=== PATIENT | male | born 1940 | race Caucasian/White ===

== ENCOUNTER 2017-10-17 13:26 | Emergency (ER) | payer OTHER, BC ==
[~2017-10-17] VITALS: Ht 177.8 cm; Wt 101.6 kg
[2017-10-17 13:34] VITALS: TEMP 36.6; Ht 177.8 cm; Wt 101.6 kg
[2017-10-17] MEDS: HYDROmorphone INJ 1 MG/ML SYR IV PRN ×2 (14:12→15:06)
--- NOTE | 2017-10-17 14:34 | DIAGNOSTIC IMAGING REPORT ---
R HIP UNILATERAL 2 VIEWS CLINICAL HISTORY: Right hip pain following fall. COMPARISON: None FINDINGS: Note is made of posterior superior dislocation of the femoral component of the right hip arthroplasty with respect to the acetabular cup. No fracture is identified. There are 2 acetabular screws. IMPRESSION: Posterior superior dislocation of the femoral component of the right hip arthroplasty. Electronically signed by: Ignacio Wu M.D. 10/17/2017 2:33 PM Dictated Date/Time: 10/17/2017 2:32 PM
--- NOTE | 2017-10-17 14:35 | DIAGNOSTIC IMAGING REPORT ---
PELVIS 1 OR 2 VIEW ROUTINE CLINICAL HISTORY: Right hip pain following fall. COMPARISON STUDY: No previous studies for comparison. FINDINGS: Note is made of posterior superior dislocation of the femoral component of the right hip arthroplasty with respect to the acetabular cup. No associated fracture is identified. Postoperative findings within the lumbosacral spine are partially imaged. IMPRESSION: Posterior superior dislocation of the femoral component of the right hip arthroplasty. Electronically signed by: Ignacio Wu M.D. 10/17/2017 2:34 PM Dictated Date/Time: 10/17/2017 2:33 PM
[2017-10-17] MEDS ORDERED: PROPOFOL IV EMULSION 10 MG/ML 20 ML VIAL IV STA (14:42)
[2017-10-17 15:30] VITALS: BP 147/68; PULSE 62; PULSE 65; O2SAT 95; O2SAT 99
--- NOTE | 2017-10-17 15:40 | EMERGENCY ROOM VISIT NOTE ---
ED Visit Note Hip Dislocation Reduction Indication: Right hip dislocation Verbal consent obtained. Risks and benefits were explained with the usual customary discussion. A time out was taken. Neurovascular examination before the procedure revealed neurovascularly intact. The right hip was reduced by placing in the supine position. This resulted in an easy reduction without complication. Neurovascular examination after the procedure revealed neurovascularly intact. The patient had significant pain relief and tolerated the procedure well.
[2017-10-17 15:42] VITALS: BP 145/71; PULSE 45; O2SAT 98
[2017-10-17 15:58] VITALS: BP 133/50; PULSE 52; O2SAT 96
[2017-10-17] MEDS ORDERED: ZOLP5TAB PO (16:20)
[2017-10-17] MEDS ORDERED: OMEG10007 PO (16:20)
[2017-10-17] MEDS ORDERED: COEN75CA PO (16:20)
[2017-10-17] MEDS ORDERED: CRS/10 PO (16:20)
[2017-10-17] MEDS ORDERED: EZET10TA63 PO (16:20)
[2017-10-17] MEDS ORDERED: ASPI81TA28 PO (16:20)
[2017-10-17] MEDS ORDERED: DVN80125 PO (16:20)
[2017-10-17] MEDS ORDERED: PRLSR20 PO (16:20)
[2017-10-17] MEDS ORDERED: POTA99TA PO (16:20)
[2017-10-17] MEDS ORDERED: MAGNTAB17 PO (16:20)
[2017-10-17] MEDS ORDERED: DILT180C50 PO (16:20)
[2017-10-17] MEDS ORDERED: CLR10 PO (16:20)
--- NOTE | 2017-10-17 16:27 | DIAGNOSTIC IMAGING REPORT ---
PELVIS 1 OR 2 VIEW ROUTINE CLINICAL HISTORY: post reduction dislocation COMPARISON: Same date to 8:00 PM DISCUSSION: Anatomic alignment post closed reduction. Total right hip replacement in good position. Stable postoperative changes low lumbar spine. There is no evidence for soft tissue swelling. IMPRESSION: Anatomic alignment post closed reduction right hip. The above report was generated using voice recognition software. It may contain grammatical, syntax or spelling errors. Electronically signed by: Adair Reinoso M.D. 10/17/2017 4:26 PM Dictated Date/Time: 10/17/2017 4:25 PM
--- NOTE | 2017-10-17 17:12 | EMERGENCY ROOM VISIT NOTE ---
History Report prepared by Herbert: Jovana Rasmussen Under the Supervision of: Dr. Paris Pierce D.O. First contact with patient: 13:41 Chief Complaint: HIP PAIN Stated Complaint: HIP PAIN History of Present Illness The patient is a 77 year old male who presents to the Emergency Room with complaints of sudden right hip pain starting prior to arrival. The patient states that he had his right hip replaced in October of last year. He notes that intermittently it feels unstable, but he is able to catch himself. He states that they are currently moving into a new house. He reports that he sat down to take a break in a low seated picnic chair. He states that when he went to get up out of it he felt his right hip give way towards his left leg. He states that he immediately collapsed and had excruciating pain. He states that the pain is much worse if he tries to move his leg. The patient states that he believes he popped the hip out. He notes that he did scrape his elbow. He states that there was hardly anything in the room at the time. He reports that he had major back surgery at the end of June, but did not feel anything in his back when he fell today. The patient denies numbness in his legs, tingling in his legs, back pain, hitting his head, and loss of consciousness. The patient notes that he last ate 4.5 hours ago. Source of History: patient Onset: prior to arrival Position: other (right hip) Quality: other (unstable) Timing: other (sudden) Modifying Factors (Worsening): movement Associated Symptoms: No LOC, No back pain, No numbness Note: The patient denies tingling in his legs. Review of Systems See HPI for pertinent positives & negatives. A total of 10 systems reviewed and were otherwise negative. Past Medical & Surgical Surgical Problems: (1) History of back surgery (2) History of right hip replacement (3) Hx of total knee replacement Family History No pertinent family history Social History Smoking Status: Former Smoker Marital Status: Housing Status: lives with significant other Occupation Status: retired Current/Historical Medications Scheduled Aspirin (Aspirin Ec), 81 MG PO QPM Coenzyme Q10 (Ubidecarenone) (Co Q-10), 1 CAP PO QPM Diltiazem Hcl Coated Beads (Cartia Xt), 180 MG PO QAM Ezetimibe (Zetia), 10 MG PO QAM Fish Oil (Stephens-3), 1 CAP PO BID Loratadine (Claritin), 10 MG PO QAM Magnesium Chloride-Calcium Car (Slow-Mag), 1 TAB PO QPM Omeprazole (Prilosec), 20 MG PO QAM Potassium (Potassium), 99 MG PO QPM Rosuvastatin Calcium (Crestor), 10 MG PO QPM Valsartan/Hctz (Diovan Hct), 1 TAB PO QAM Zolpidem Tartrate (Ambien), 5 MG PO HS Allergies Coded Allergies: No Known Allergies (Unverified , 10/17/17) Physical Exam Vital Signs Date Time Temp Pulse Resp B/P (MAP) Pulse Ox O2 Delivery O2 Flow Rate FiO2 10/17/17 17:51 40 98 10/17/17 17:32 132/56 10/17/17 17:20 158/66 10/17/17 17:03 133/81 10/17/17 16:51 41 15 10/17/17 16:46 43 18 97 10/17/17 16:32 142/56 10/17/17 16:16 52 20 86 10/17/17 16:02 131/93 10/17/17 15:58 52 20 133/50 96 Room Air 10/17/17 15:52 133/50 10/17/17 15:46 50 11 100 10/17/17 15:42 45 12 145/71 98 Nasal Cannula 2.0 10/17/17 15:41 54 10 145/71 93 10/17/17 15:31 54 10 125/71 100 10/17/17 15:30 62 14 99 Ambu-Bag 15.0 10/17/17 15:30 65 8 147/68 95 Ambu-Bag 15.0 10/17/17 15:28 52 10/17/17 15:28 138/68 10/17/17 15:21 52 14 95 10/17/17 15:13 100 Nasal Cannula 2.0 10/17/17 15:13 100 Nasal Cannula 2.0 10/17/17 15:11 47 14 10/17/17 15:06 49 18 10/17/17 14:49 142/60 10/17/17 14:42 51 16 136/94 96 Room Air 10/17/17 13:34 36.6 55 18 161/74 99 Room Air Physical Exam GENERAL: alert, uncomfortable appearing, well nourished, no distress, non-toxic EYE EXAM: normal conjunctiva, PERRL and EOM's grossly intact OROPHARYNX: no exudate, no erythema, lips, buccal mucosa, and tongue normal and mucous membranes are moist NECK: supple, no nuchal rigidity, no adenopathy, non-tender LUNGS: Clear to auscultation. Normal chest wall mechanics HEART: no murmurs, S1 normal and S2 normal ABDOMEN: abdomen soft, non-tender, normo-active bowel sounds, no masses, no rebound or guarding. BACK: Back is symmetrical on inspection and there is no deformity, no midline tenderness, no CVA tenderness. SKIN: no rashes and no bruising UPPER EXTREMITIES: upper extremities are grossly normal. LOWER EXTREMITIES: No pitting edema. Right hip supported in flexion. Pain with palpation over the right lateral hip. Well healed vertical midline incision over the right knee. Decreased ROM in the right lower extremity secondary to pain. NEURO EXAM: Normal sensorium, cranial nerves II-XII grossly intact, normal speech, no gross weakness of arms, no gross weakness of legs. Medical Decision & Procedures ER Provider Diagnostic Interpretation: Radiology results have been interpreted by the radiologist and reviewed by me. PELVIS 1 OR 2 VIEW ROUTINE CLINICAL HISTORY: Right hip pain following fall. COMPARISON STUDY: No previous studies for comparison. FINDINGS: Note is made of posterior superior dislocation of the femoral component of the right hip arthroplasty with respect to the acetabular cup. No associated fracture is identified. Postoperative findings within the lumbosacral spine are partially imaged. IMPRESSION: Posterior superior dislocation of the femoral component of the right hip arthroplasty. Electronically signed by: Ignacio Wu M.D. 10/17/2017 2:34 PM Dictated Date/Time: 10/17/2017 2:33 PM R HIP UNILATERAL 2 VIEWS CLINICAL HISTORY: Right hip pain following fall. COMPARISON: None FINDINGS: Note is made of posterior superior dislocation of the femoral component of the right hip arthroplasty with respect to the acetabular cup. No fracture is identified. There are 2 acetabular screws. IMPRESSION: Posterior superior dislocation of the femoral component of the right hip arthroplasty. Electronically signed by: Ignacio Wu M.D. 10/17/2017 2:33 PM Dictated Date/Time: 10/17/2017 2:32 PM PELVIS 1 OR 2 VIEW ROUTINE CLINICAL HISTORY: post reduction dislocation COMPARISON: Same date to 8:00 PM DISCUSSION: Anatomic alignment post closed reduction. Total right hip replacement in good position. Stable postoperative changes low lumbar spine. There is no evidence for soft tissue swelling. IMPRESSION: Anatomic alignment post closed reduction right hip. The above report was generated using voice recognition software. It may contain grammatical, syntax or spelling errors. Electronically signed by: Adair Reinoso M.D. 10/17/2017 4:26 PM Dictated Date/Time: 10/17/2017 4:25 PM Medications Administered Medications (Trade) Dose Ordered Sig/Eric Route Start Time Stop Time Status Last Admin Dose Admin Hydromorphone HCl (Dilaudid Inj) 1 mg Q15M PRN IV 10/17/17 14:15 10/17/17 19:03 DC 10/17/17 15:06 1 MG Ondansetron HCl (ZOFRAN ODT 4MG Home Pack) 1 homepack UD ONCE PO 10/17/17 17:45 10/17/17 17:46 DC 10/17/17 17:49 1 HOMEPACK Ondansetron HCl (Zofran Inj) 4 mg NOW STAT IV 10/17/17 17:44 10/17/17 17:45 DC 10/17/17 17:49 4 MG Procedure Procedural Sedation Indication: Right Hip Dislocation. Total time: 10 minutes. Written consent was obtained after the risks and benefits were explained to the patient, including, but not limited to aspiration, allergic reaction, breathing difficulties, cardiac complications, vomiting, pain, event recall, bleeding, and /or infection. Pre-sedation examination and paperwork completed. The patient was on 100% oxygen via NRB prior to the procedure. Continous end tidal CO2 monitoring, pulse oximetry, and cardiac monitoring were utilized. Suction, airway equipment, medications, respiratory equipment, and appropriate personnel were prepared prior to the initiation of the procedure. A time out was taken. Sedation was achieved utilizing 100 mg of Propofol. After I observed the patient had reached the appropriate level of sedation the main procedure was performed without complication. Sedation was discontinued and the monitoring continued. The patient recovered quickly from the effects of the medication without complication or adverse event. ED Course 1359: The patient was evaluated in room B8. A complete history and physical exam was performed. 1415: Ordered Dilaudid Inj 1 mg PRN IV pain. 1441: I reevaluated the patient and updated him on his x-ray results. 1442: Ordered Propofol 20 mg IV. 1500: I reevaluated the patient and received consent for his sedation and reduction. 1516: I performed a sedation at this time. Dr. Shamar Triplett performed the reduction. See his note for details regarding the reduction. 1652: I reevaluated the patient and he feels better. 1716: Upon reevaluation, the patient is feeling better. I discussed the findings and the treatment plan with the patient. He verbalizes agreement and understanding. The patient was discharged home. 1744: Ordered Zofran Inj 4 mg IV. 174: Ordered Ondansetron HCl 1 homepack PO. Medical Decision Differential diagnosis: Etiologies such as fracture, dislocation, neurovascular compromise, compartment syndrome, soft tissue injury, as well as others were entertained. Patient improved here following reduction and realignment of the prosthetic hip on the right. Patient able to ambulate. Patient with mild nausea which she states is normal after medications, was able to eat and drink, had no vomiting. Vital signs stable throughout. Patient tolerated procedure and sedation well. Consent form signed and on the chart. Patient and family aware of procedure as well as recovery. Please see procedure notes and additional note by Dr. Shamar Triplett who assisted with the reduction. Discussed with patient close follow-up with orthopedics. Orthopedic surgeon performed his procedure one year ago is in [place], however he was recently also given names and contact information's of local orthopedist to follow-up with. I encouraged him to follow-up with either later on this week as a precaution. Discussed position changes, ambulation, use of an abduction pillow. Patient offered additional pain medication and he declined, states he would like to only take Tylenol at home. Discussed symptoms to watch and return for, he and verbalized understanding were in agreement with plan. Medication Reconcilliation Current Medication List: was personally reviewed by me Blood Pressure Screening Patient's blood pressure: Normal blood pressure Blood pressure disposition: Did not require urgent referral Impression Primary Impression: Hip dislocation, right Additional Impression: History of right hip replacement Scribe Attestation The scribe's documentation has been prepared under my direction and personally reviewed by me in its entirety. I confirm that the note above accurately reflects all work, treatment, procedures, and medical decision making performed by me. Departure Information Dispostion Home / Self-Care Referrals Mikel Coates M.D. (PCP) Forms HOME CARE DOCUMENTATION FORM, IMPORTANT VISIT INFORMATION, WORK / SCHOOL INSTRUCTIONS Patient Instructions [facility] Additional Instructions Please call and follow-up with the orthopedic surgeon who performed her surgery or with a local orthopedist as you have previously been referred. Please use the abduction pillow. Please make sure to stand with your feet shoulder width apart. Please use extra caution when changing positions or standing. If you have any worsening pain, are unable to walk, have any other new or concerning symptoms, please return the emergency room. Problem Qualifiers Primary Impression: Hip dislocation, right Encounter type: initial encounter Qualified Codes: S73.004A - Unspecified dislocation of right hip, initial encounter
[2017-10-17 17:32] VITALS: BP 132/56
[2017-10-17] MEDS ORDERED: ONDANSETRON INJ 2 MG/ML 2 ML VIAL IV STA (17:44)
[2017-10-17] MEDS ORDERED: ONDANSETRON HOME PACK 4MG OD TAB ONE (17:44)
[2017-10-17] MEDS ORDERED: ONDANSETRON INJ 2 MG/ML 2 ML VIAL ONE (17:44)
[2017-10-17] MEDS ORDERED: ONDANSETRON HOME PACK 4MG OD TAB PO ONE (17:45)
[2017-10-17 17:51] VITALS: PULSE 40; O2SAT 98
--- NOTE | 2017-10-19 22:03 | EMERGENCY ROOM VISIT NOTE ---
Pre-Mod Sedation Assessment General Date of Moderate Sedation: Oct 17, 2017. Vital Signs: Vital Signs Past 12 Hours Date Time Temp Pulse Resp B/P (MAP) Pulse Ox O2 Delivery O2 Flow Rate FiO2 10/17/17 17:51 40 98 10/17/17 17:32 132/56 10/17/17 17:20 158/66 10/17/17 17:03 133/81 10/17/17 16:51 41 15 10/17/17 16:46 43 18 97 10/17/17 16:32 142/56 10/17/17 16:16 52 20 86 10/17/17 16:02 131/93 10/17/17 15:58 52 20 133/50 96 Room Air 10/17/17 15:52 133/50 10/17/17 15:46 50 11 100 10/17/17 15:42 45 12 145/71 98 Nasal Cannula 2.0 10/17/17 15:41 54 10 145/71 93 10/17/17 15:31 54 10 125/71 100 10/17/17 15:30 62 14 99 Ambu-Bag 15.0 10/17/17 15:30 65 8 147/68 95 Ambu-Bag 15.0 10/17/17 15:28 52 10/17/17 15:28 138/68 10/17/17 15:21 52 14 95 10/17/17 15:13 100 Nasal Cannula 2.0 10/17/17 15:13 100 Nasal Cannula 2.0 10/17/17 15:11 47 14 10/17/17 15:06 49 18 10/17/17 14:49 142/60 10/17/17 14:42 51 16 136/94 96 Room Air 10/17/17 13:34 36.6 55 18 161/74 99 Room Air Review Cardiovascular: regular rate, rhythm, no edema, no gallop, no JVD, no murmur, normal peripheral pulses Abdomen: normal bowel sounds, non tender, soft, no organomegaly, no pulsatile mass Lungs: chest non-tender, lungs clear, normal breath sounds, no respiratory distress, no accessory muscle use Airway Class: III Pre-Sedation Airway Assessment Oral Cavity: WNL Short Thick Neck: No Hx of Sleep Apnea: No Smoking Status: Former Smoker Mallampati Classification: Class III ASA Classification: Class II Procedure Planning Contraindications-for Mod Sed: None Yes Notes The planned sedation has been discussed with the patient and consent obtained. I have identified the patient, determined the appropriateness of sedation and have assessed the patient immediately prior to the procedure. All medicine(s) and interventions are by my order.
--- NOTE | 2017-10-19 22:04 | EMERGENCY ROOM VISIT NOTE ---
Post-Moderate Sedation Plan General Date of Moderate Sedation Oct 17, 2017. Vital Signs: Vital Signs Past 12 Hours Date Time Temp Pulse Resp B/P (MAP) Pulse Ox O2 Delivery O2 Flow Rate FiO2 10/17/17 17:51 40 98 10/17/17 17:32 132/56 10/17/17 17:20 158/66 10/17/17 17:03 133/81 10/17/17 16:51 41 15 10/17/17 16:46 43 18 97 10/17/17 16:32 142/56 10/17/17 16:16 52 20 86 10/17/17 16:02 131/93 10/17/17 15:58 52 20 133/50 96 Room Air 10/17/17 15:52 133/50 10/17/17 15:46 50 11 100 10/17/17 15:42 45 12 145/71 98 Nasal Cannula 2.0 10/17/17 15:41 54 10 145/71 93 10/17/17 15:31 54 10 125/71 100 10/17/17 15:30 62 14 99 Ambu-Bag 15.0 10/17/17 15:30 65 8 147/68 95 Ambu-Bag 15.0 10/17/17 15:28 52 10/17/17 15:28 138/68 10/17/17 15:21 52 14 95 10/17/17 15:13 100 Nasal Cannula 2.0 10/17/17 15:13 100 Nasal Cannula 2.0 10/17/17 15:11 47 14 10/17/17 15:06 49 18 10/17/17 14:49 142/60 10/17/17 14:42 51 16 136/94 96 Room Air 10/17/17 13:34 36.6 55 18 161/74 99 Room Air Review - Discharge Plan Post Moderate Sedation Plan: On clinical assessment, the patient appears to have tolerated the conscious sedation without complications. Patient is recovering as anticipated. Patient will continue to be monitored by nursing and may be discharged when conscious sedation discharge criteria are met.
== END 2017-10-17 18:16 | disposition home or self-care (01) ==
LOC: EDBD 13:26 → C.EDB 13:27
DX: S73.004A Unspecified dislocation of right hip, initial encounter (principal); W19.XXXA Unspecified fall, initial encounter; R09.02 Hypoxemia; Z96.641 Presence of right artificial hip joint; Z87.891 Personal history of nicotine dependence; Z79.82 Long term (current) use of aspirin; Z79.899 Other long term (current) drug therapy

== ENCOUNTER 2017-11-12 10:35 | Emergency (ER) | payer OTHER, BC ==
[~2017-11-12] VITALS: Ht 177.8 cm; Wt 97.3 kg
[2017-11-12 10:35] VITALS: TEMP 36.6; Ht 177.8 cm; Wt 97.3 kg
[~2017-11-12 10:35] MED LIST: ASPI81TA28 PO; CLR10 PO; COEN75CA PO; CRS/10 PO; DILT180C50 PO; DVN80125 PO; EZET10TA63 PO; MAGNTAB17 PO; OMEG10007 PO; POTA99TA PO; PRLSR20 PO; ZOLP5TAB PO
[2017-11-12] MEDS ORDERED: SODIUM CHLORIDE 0.9% 500ML 500 ML IV STA (10:45)
[2017-11-12] MEDS ORDERED: SUCR1TAB PO (11:05)
[2017-11-12] MEDS: FENTANYL CITRATE INJ 50 MCG/1 ML 2 ML VIAL IV PRN ×3 (11:12→12:15)
--- NOTE | 2017-11-12 12:23 | EMERGENCY ROOM VISIT NOTE ---
Pre-Mod Sedation Assessment General Date of Moderate Sedation: Nov 12, 2017. Vital Signs: Vital Signs Past 12 Hours Date Time Temp Pulse Resp B/P (MAP) Pulse Ox O2 Delivery O2 Flow Rate FiO2 11/12/17 11:31 47 11/12/17 11:14 99 Nasal Cannula 2.0 11/12/17 11:11 53 20 169/88 95 Room Air 11/12/17 10:35 36.6 52 18 154/83 97 Room Air Review Cardiovascular: no gallop, no murmur, + bradycardia Abdomen: normal bowel sounds, non tender, soft Lungs: chest non-tender, lungs clear, normal breath sounds, no respiratory distress, no accessory muscle use Pre-Sedation Airway Assessment Oral Cavity: Dental Abnormalities Able to Visualize Vocal Cords: No Short Thick Neck: No Smoking Status: Former Smoker Mallampati Classification: Class I ASA Classification: Class III Procedure Planning Contraindications-for Mod Sed: None Yes Notes The planned sedation has been discussed with the patient and consent obtained. I have identified the patient, determined the appropriateness of sedation and have assessed the patient immediately prior to the procedure. All medicine(s) and interventions are by my order.
[2017-11-12] MEDS ORDERED: ONDANSETRON INJ 2 MG/ML 2 ML VIAL ONE (12:24)
[2017-11-12] MEDS ORDERED: ONDANSETRON INJ 2 MG/ML 2 ML VIAL IV STA (12:24)
[2017-11-12] MEDS ORDERED: PROPOFOL IV EMULSION 10 MG/ML 20 ML VIAL IV STA (12:30)
--- NOTE | 2017-11-12 12:33 | DIAGNOSTIC IMAGING REPORT ---
PELVIS 1 OR 2 VIEW ROUTINE CLINICAL HISTORY: fall, pain COMPARISON STUDY: Pelvis radiograph October 17, 2017. FINDINGS: Note is made of superior lateral dislocation of the femoral component of the right hip arthroplasty with respect to the acetabular cup. There is no acute fracture. Postoperative findings are noted within visualized portions of the spine. IMPRESSION: Superior dislocation of the femoral component of the right hip arthroplasty. No fracture. Electronically signed by: Ignacio Wu M.D. 11/12/2017 12:32 PM Dictated Date/Time: 11/12/2017 12:30 PM
--- NOTE | 2017-11-12 12:34 | DIAGNOSTIC IMAGING REPORT ---
R HIP UNILATERAL 2 VIEWS CLINICAL HISTORY: fall, pain, right hip COMPARISON: Right hip radiographs October 17, 2017. FINDINGS: Note is made of superior dislocation of the femoral component of the right hip arthroplasty with respect to the acetabular cup. No fracture is identified. IMPRESSION: Superior dislocation of the femoral component of the right hip arthroplasty. No fracture. Electronically signed by: Ignacio Wu M.D. 11/12/2017 12:33 PM Dictated Date/Time: 11/12/2017 12:32 PM
--- NOTE | 2017-11-12 13:06 | EMERGENCY ROOM VISIT NOTE ---
Post-Moderate Sedation Plan General Date of Moderate Sedation Nov 12, 2017. Vital Signs: Vital Signs Past 12 Hours Date Time Temp Pulse Resp B/P (MAP) Pulse Ox O2 Delivery O2 Flow Rate FiO2 11/12/17 12:15 45 18 159/75 98 Room Air 11/12/17 11:31 47 11/12/17 11:14 99 Nasal Cannula 2.0 11/12/17 11:11 53 20 169/88 95 Room Air 11/12/17 10:35 36.6 52 18 154/83 97 Room Air Review - Discharge Plan Post Moderate Sedation Plan: On clinical assessment, the patient appears to have tolerated the conscious sedation without complications. Patient is recovering as anticipated. Patient will continue to be monitored by nursing and may be discharged when conscious sedation discharge criteria are met.
[2017-11-12 13:10] VITALS: BP 134/68; PULSE 57; O2SAT 98
[2017-11-12 13:13] VITALS: BP 135/72; PULSE 49; O2SAT 96
--- NOTE | 2017-11-12 13:28 | DIAGNOSTIC IMAGING REPORT ---
PELVIS 1 OR 2 VIEW ROUTINE CLINICAL HISTORY: post reduction, right hip COMPARISON STUDY: Pelvis radiograph November 12, 2017 at 12:06 PM. FINDINGS: Alignment of the total right hip arthroplasty is anatomic post reduction. There is no fracture. Postoperative findings within the spine are incidentally noted. IMPRESSION: Expected findings following reduction of right hip arthroplasty. Anatomic alignment with no fracture. Electronically signed by: Ignacio Wu M.D. 11/12/2017 1:27 PM Dictated Date/Time: 11/12/2017 1:26 PM
--- NOTE | 2017-11-12 13:32 | Orthopedic Consultation ---
Orthopedic Consultation Date of Consultation: Nov 12, 2017. Attending Physician: Dr. Mikel Buckley Reason for Consultation: Right closed hip dislocation History of Present Illness 77 year old male, s/p right total hip arthroplasty approximately 1 year ago in [place], [place]. Had his 1st dislocation, reduced by Dr. Vargas on 10/17/17. He now resides in this area, has followed up with Dr. Vargas after his 1st dislocation. Was in the shower this morning, put his leg up on the side of the tub to dry off and leaned forward, felt his hip pop out. Had immediate pain and inability to weight bear. Presented tot he ED, x-rays were taken, found to have a right total hip dislocation. Orthopedics consulted for care. Past Medical/Surgical History Medical Problems: (1) Hip dislocation, right Status: Acute Family History No pertinent family history Social History Smoking Status: Former Smoker Marital Status: Housing Status: lives with significant other Occupation Status: retired Allergies Coded Allergies: No Known Allergies (Unverified , 11/12/17) Home Medications Scheduled Aspirin (Aspirin Ec), 81 MG PO QPM Coenzyme Q10 (Ubidecarenone) (Co Q-10), 1 CAP PO QPM Diltiazem Hcl Coated Beads (Cartia Xt), 180 MG PO QAM Ezetimibe (Zetia), 10 MG PO QAM Fish Oil ([place]-3), 1 CAP PO BID Loratadine (Claritin), 10 MG PO QAM Magnesium Chloride-Calcium Car (Slow-Mag), 1 TAB PO QPM Omeprazole (Prilosec), 20 MG PO QAM Potassium (Potassium), 99 MG PO QPM Rosuvastatin Calcium (Crestor), 10 MG PO QPM Sucralfate (Sucralfate), 1 TAB PO BID Valsartan/Hctz (Diovan Hct), 1 TAB PO QAM Zolpidem Tartrate (Ambien), 5 MG PO HS Current Inpatient Medications Current Inpatient Medications Medications (Trade) Dose Ordered Sig/Eric Route Start Time Stop Time Status Last Admin Dose Admin Fentanyl Citrate (Fentanyl Inj) 100 mcg Q15M PRN IV 11/12/17 10:45 11/26/17 10:44 11/12/17 12:15 100 MCG Review of Systems Constitutional: No fever, No chills, No sweats Cardiovascular: No chest pain Abdomen: No pain, No nausea, No vomiting Musculoskeletal: + joint pain (right hip), + muscle pain (right buttock) Hematologic / Lymphatic: No abnormal bleeding/bruising Integumentary: No rash Physical Exam Date Time Temp Pulse Resp B/P (MAP) Pulse Ox O2 Delivery O2 Flow Rate FiO2 11/12/17 13:13 49 13 135/72 96 Nasal Cannula 2.0 11/12/17 13:10 57 12 134/68 98 Nasal Cannula 3.0 11/12/17 12:15 45 18 159/75 98 Room Air 11/12/17 11:31 47 11/12/17 11:14 99 Nasal Cannula 2.0 11/12/17 11:11 53 20 169/88 95 Room Air 11/12/17 10:35 36.6 52 18 154/83 97 Room Air General Appearance: WD/WN, no apparent distress Extremities/Musculoskelatal: no calf tenderness, normal capillary refill, no pedal edema, + pertinent finding (right leg held in flexed position for comfort , leg shortened. Distal senstaion, pulses intact. No distal edema, pain with attempted ROM) Neurologic/Psych: no motor/sensory deficits, alert, normal mood/affect, oriented x 3 Skin: normal color, warm/dry Laboratory Results Radiology Imaging: PELVIS 1 OR 2 VIEW ROUTINE CLINICAL HISTORY: fall, pain COMPARISON STUDY: Pelvis radiograph October 17, 2017. FINDINGS: Note is made of superior lateral dislocation of the femoral component of the right hip arthroplasty with respect to the acetabular cup. There is no acute fracture. Postoperative findings are noted within visualized portions of the spine. IMPRESSION: Superior dislocation of the femoral component of the right hip arthroplasty. No fracture. R HIP UNILATERAL 2 VIEWS CLINICAL HISTORY: fall, pain, right hip COMPARISON: Right hip radiographs October 17, 2017. FINDINGS: Note is made of superior dislocation of the femoral component of the right hip arthroplasty with respect to the acetabular cup. No fracture is identified. IMPRESSION: Superior dislocation of the femoral component of the right hip arthroplasty. No fracture. Assessment & Plan Assessment: Right total hip prosthesis dislocation Plan: Patient seen and evaluated by Dr. Buckley. Recommended closed reduction under sedation by ED physician. He agreed to proceed, risks/ complications discussed with patient, informed consent obtained. Closed reduction performed by Dr. Buckley. Post reduction films confirmed reduction of right SENA. Hip brace applied to right hip, locked in 80 deg of flexion. Brace instructions reviewed with and patient. Recommended wearing the brace at all times for the next 6 weeks. Continue outpatient PT. WBAT right lower extremity with the assistance of a walker/crutches today, may progress to a cane as guided by his therapist. Follow up with Dr. Vargas sometime this week for further care of his right hip. He may call [phone] with any questions or concerns. Ice to right hip PRN pain. Elevation for swelling. Tylenol or Ibuprofen PRN pain. Continue posterior hip precautions. Procedure Note: Closed reduction performed by Dr. Buckley. informed consent obtained, time out performed. Conscious sedation provided by ED physician. A closed reduction performed with audible and visible reduction. post reduction films confirmed SENA reduction. Hip ROM brace applied. He should be out of bed, try walking with a walker prior to discharge from the ED. Follow up as instructed.
[2017-11-12] MEDS ORDERED: ONDANSETRON HOME PACK 4MG OD TAB PO ONE (14:45)
[2017-11-12 14:53] VITALS: BP 128/75; PULSE 57; O2SAT 97
--- NOTE | 2017-11-12 15:56 | EMERGENCY ROOM VISIT NOTE ---
History Report prepared by Herbert: Cecilia Joseph Under the Supervision of: Dr. José Miguel Zavala M.D. 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 He states he had just showered and was drying himself off with his foot resting on the seat when he slipped and fell. He states he was in "incredible pain" as he dislocated his right hip so he called EMS. The pt denies any other complaints such as a headache/head injury, back pain, lung issues, or a history of COPD. 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 Source of History: patient Onset: 2 hours banquet captain Position: other (hio) Quality: other (hip dislocation, "terrible pain") Timing: other (after a fall) Associated Symptoms: No headache, No back pain Note: Negative head injury, lung issues, or a history of COPD Review of Systems See HPI for pertinent positives & negatives. A total of 10 systems reviewed and were otherwise negative. Past Medical & Surgical Surgical Problems: (1) History of back surgery (2) History of right hip replacement (3) Hx of total knee replacement Family History No pertinent family history Social History Smoking Status: Former Smoker Marital Status: Housing Status: lives with significant other Occupation Status: retired Current/Historical Medications Scheduled Aspirin (Aspirin Ec), 81 MG PO QPM Coenzyme Q10 (Ubidecarenone) (Co Q-10), 1 CAP PO QPM Diltiazem Hcl Coated Beads (Cartia Xt), 180 MG PO QAM Ezetimibe (Zetia), 10 MG PO QAM Fish Oil ([place]-3), 1 CAP PO BID Loratadine (Claritin), 10 MG PO QAM Magnesium Chloride-Calcium Car (Slow-Mag), 1 TAB PO QPM Omeprazole (Prilosec), 20 MG PO QAM Potassium (Potassium), 99 MG PO QPM Rosuvastatin Calcium (Crestor), 10 MG PO QPM Sucralfate (Sucralfate), 1 TAB PO BID Valsartan/Hctz (Diovan Hct), 1 TAB PO QAM Zolpidem Tartrate (Ambien), 5 MG PO HS Allergies Coded Allergies: No Known Allergies (Unverified , 11/12/17) Physical Exam Vital Signs Date Time Temp Pulse Resp B/P (MAP) Pulse Ox O2 Delivery O2 Flow Rate FiO2 11/12/17 14:53 57 18 128/75 97 11/12/17 14:16 43 17 130/62 93 11/12/17 14:01 46 14 140/72 91 Room Air 11/12/17 13:46 48 15 129/64 92 Room Air 11/12/17 13:31 51 16 135/67 90 Room Air 11/12/17 13:16 42 20 141/77 96 Room Air 11/12/17 13:13 49 13 135/72 96 Nasal Cannula 2.0 11/12/17 13:11 46 14 135/72 93 Nasal Cannula 2.0 11/12/17 13:10 52 11 135/72 99 Nasal Cannula 2.0 11/12/17 13:10 57 12 134/68 98 Nasal Cannula 3.0 11/12/17 13:05 43 13 134/68 100 Nasal Cannula 2.0 11/12/17 13:00 42 8 126/60 95 Nasal Cannula 3.0 11/12/17 12:55 51 11 144/99 99 Nasal Cannula 3.0 11/12/17 12:50 47 13 163/76 98 Nasal Cannula 3.0 11/12/17 12:15 45 18 159/75 98 Room Air 11/12/17 11:31 47 11/12/17 11:14 99 Nasal Cannula 2.0 11/12/17 11:11 53 20 169/88 95 Room Air 11/12/17 10:35 36.6 52 18 154/83 97 Room Air Physical Exam GENERAL: Patient is in no acute distress. HEENT: No acute trauma, normocephalic atraumatic, mucous membranes moist, no nasal congestion, no scleral icterus. NECK: No stridor, no adenopathy, no meningismus, trachea is midline. LUNGS: Clear to auscultation bilaterally, no wheeze, no rhonchi, breath sounds equal. HEART: Bradycardic with a regular rhythm. No murmurs ABDOMEN: Soft, nontender, bowel sounds positive, no hernias, no peritonitis. EXTREMITIES: RLE is internally rotated. There is some flexion at the knee and the extremity in general seems somewhat shortened. NVI distally in the RLE. Pain with movement of the right hip joint NEUROLOGIC: Oriented x 3, no acute motor or sensory deficits, no focal weakness. SKIN: No rash, no jaundice, no diaphoresis. Medical Decision & Procedures ER Provider Diagnostic Interpretation: Radiology results as stated below per my review and radiologist interpretation: PELVIS 1 OR 2 VIEW ROUTINE CLINICAL HISTORY: fall, pain COMPARISON STUDY: Pelvis radiograph October 17, 2017. FINDINGS: Note is made of superior lateral dislocation of the femoral component of the right hip arthroplasty with respect to the acetabular cup. There is no acute fracture. Postoperative findings are noted within visualized portions of the spine. IMPRESSION: Superior dislocation of the femoral component of the right hip arthroplasty. No fracture. Electronically signed by: Ignacio Wu M.D. 11/12/2017 12:32 PM R HIP UNILATERAL 2 VIEWS CLINICAL HISTORY: fall, pain, right hip COMPARISON: Right hip radiographs October 17, 2017. FINDINGS: Note is made of superior dislocation of the femoral component of the right hip arthroplasty with respect to the acetabular cup. No fracture is identified. IMPRESSION: Superior dislocation of the femoral component of the right hip arthroplasty. No fracture. Electronically signed by: Ignacio Wu M.D. 11/12/2017 12:33 PM PELVIS 1 OR 2 VIEW ROUTINE CLINICAL HISTORY: post reduction, right hip COMPARISON STUDY: Pelvis radiograph November 12, 2017 at 12:06 PM. FINDINGS: Alignment of the total right hip arthroplasty is anatomic post reduction. There is no fracture. Postoperative findings within the spine are incidentally noted. IMPRESSION: Expected findings following reduction of right hip arthroplasty. Anatomic alignment with no fracture. Electronically signed by: Ignacio Wu M.D. 11/12/2017 1:27 PM Medications Administered Medications (Trade) Dose Ordered Sig/Eric Route Start Time Stop Time Status Last Admin Dose Admin Fentanyl Citrate (Fentanyl Inj) 100 mcg Q15M PRN IV 11/12/17 10:45 11/12/17 15:01 DC 11/12/17 12:15 100 MCG Sodium Chloride 500 ml @ 999 mls/hr Q31M STAT IV 11/12/17 10:45 11/12/17 11:15 DC 11/12/17 11:11 999 MLS/HR Ondansetron HCl (Zofran Inj) 4 mg NOW STAT IV 11/12/17 12:24 11/12/17 12:25 DC 11/12/17 12:24 4 MG Propofol (Diprivan Iv Emulsion 20ml Vial) 100 mg NOW STAT IV 11/12/17 12:30 11/12/17 12:32 DC 11/12/17 12:42 100 MG Ondansetron HCl (ZOFRAN ODT 4MG Home Pack) 1 homepack UD ONCE PO 11/12/17 14:45 11/12/17 14:46 DC 11/12/17 14:41 1 HOMEPACK Procedure Procedural Sedation Indication Hip Dislocation. Total time: 16 minutes. Written consent was obtained after the risks and benefits were explained to the patient, including, but not limited to aspiration, allergic reaction, breathing difficulties, cardiac complications, vomiting, pain, event recall, bleeding, and /or infection. Pre-sedation examination and paperwork completed. The patient was on oxygen via [place] prior to the procedure. Continous end tidal CO2 monitoring , pulse oximetry, and cardiac monitoring were utilized. Suction, airway equipment, medications, respiratory equipment, and appropriate personnel were prepared prior to the initiation of the procedure. A time out was taken. Sedation was achieved utilizing 80 mg of Propofol. After I observed the patient had reached the appropriate level of sedation the main procedure was performed without complication. Sedation was discontinued and the monitoring continued. The patient recovered quickly from the effects of the medication without complication or adverse event. ECG Per My Interpretation Indication: bradycardia Rate (beats per minute): 47 Rhythm: sinus bradycardia Findings: other (possible old inferior infarct, no ST elevation) ED Course 1040: The patient was evaluated in room C9. A complete history and physical exam was performed. 1045: Ordered Sodium Chloride 500 ml @ 999 mls/hr IV, Fentanyl Inj 100 mcg IV 1215: Discussed the patient's case with Rafita Valdez. He will reduce the hip and I will do the conscious sedation. 1224: Ordered Zofran Inj 4 mg IV 1248: I performed a conscious sedation at this time and Rafita Valdez reduced the patient's hip. 1328: I checked on the patient at this time. He is talking and feeling much better. 1436: Reevaluated the patient. Discussed results and discharge instructions: He verbalized understanding and agreement. The patient is ready for discharge. Medical Decision Differential diagnosis: Etiologies such as hip fracture, hip dislocation, neurovascular compromise, head injury, back injury, viral illness, anemia, as well as others were entertained. Patient presents with pain in the right hip. His presentation was consistent with a right hip dislocation. He had not suffered trauma to the head, neck, extremities. He has been in baseline health. He was bradycardic but this is part of his past history. EKG does show a sinus bradycardia, no acute ischemia. Films of the pelvis and right hip confirm a right hip dislocation, no fracture. The patient received IV saline, IV Zofran and IV fentanyl. This did help control his pain. The patient was in need of reduction of his hip dislocation. He did consent to conscious sedation. The appropriate paperwork was signed. The patient underwent the procedure without difficulty. Orthopedics did perform the procedure and I did perform the conscious sedation. The patient is now awake and walking. He has a brace to use for his right hip. He will follow with orthopedics. He is being discharged to return if worsening. Medication Reconcilliation Current Medication List: was personally reviewed by me Blood Pressure Screening Patient's blood pressure: Elevated blood pressure Blood pressure disposition: Elevated BP felt to be situational Consults Time Called: 1211 Consulting Physician: Rafita Valdez Returned Call: 1215 Discussed the patient's case with Rafita Valdez. He will reduce the hip and I will do the conscious sedation. Impression Primary Impression: Hip dislocation, right Scribe Attestation The scribe's documentation has been prepared under my direction and personally reviewed by me in its entirety. I confirm that the note above accurately reflects all work, treatment, procedures, and medical decision making performed by me. Departure Information Dispostion Home / Self-Care Referrals Mikel Coates M.D. (PCP) Forms HOME CARE DOCUMENTATION FORM, IMPORTANT VISIT INFORMATION, WORK / SCHOOL INSTRUCTIONS Additional Instructions zofran 1 tab every 6 hours for nausea follow the advice of orthopedics return with any concerns
== END 2017-11-12 14:54 | disposition home or self-care (01) ==
LOC: EDBD 10:35 → C.EDC 10:36 → C.EDB 14:54
DX: T84.021A Dislocation of internal left hip prosthesis, initial encounter (principal); W01.0XXA Fall on same level from slipping, tripping and stumbling without subsequent striking against object, initial encounter; Y92.012 Bathroom of single-family (private) house as the place of occurrence of the external cause; Y93.E1 Activity, personal bathing and showering; Z96.641 Presence of right artificial hip joint; Z96.659 Presence of unspecified artificial knee joint; Z87.891 Personal history of nicotine dependence; Z79.82 Long term (current) use of aspirin; Z79.899 Other long term (current) drug therapy

== ENCOUNTER 2021-08-04 06:44 | Observation (INO) ==
--- NOTE | 2021-07-31 11:02 | History and Physical Report ---
DATE OF ADMISSION: 08/04/2021. CHIEF COMPLAINT: Persistent left knee pain and discomfort. HISTORY OF PRESENT ILLNESS: The patient is a 81-year-old gentleman well known to me from a previous right hip revision to constrained liner several years ago. He has got about a year history of gradua lly increasing progressive left knee pain and discomfort. He went through some therapy along with so me cryotherapy, which helped a little bit. He has had injections into the knee, which helped for a c ouple of weeks and that is about it. Pain is mostly medial. The more he is up and on his knee, the more it hurts. Limps more as the day goes on. It is affecting his quality of life. He would like t o have his left knee fixed. He does have a history of right knee replacement done in [place] in 009. PAST MEDICAL HISTORY: 1. History of hypertension. 2. Elevated cholesterol. 3. Low back pain/sciatica. 4. Gastroesophageal reflux disease. 5. Mild obesity. 6. BPH. PAST SURGICAL HISTORY: 1. Right foot surgery. 2. Right total knee replacement done in 02/2009 in [place]. 3. Right hip replacement with subsequent revision to a constrained liner in 2018. 4. Bilateral shoulder surgery. 5. Left hand surgery. ALLERGIES: None. CURRENT MEDICATIONS: 1. Tylenol. 2. Alfuzosin. 3. Baby aspirin. 4. Vitamin D3. 5. Zetia. 6. Famotidine. 7. Ibuprofen. 8. Loratadine. 9. Magnesium chloride. 10. Metformin. 11. Mineral oil. 12. [place] 3. 13. Omeprazole. 14. Potassium. 15. Crestor. 16. Diovan. 17. Ambien. SOCIAL HISTORY: A 81-year-old male. He lives in a [place]. . He is retired. Does not sm vladimir. Occasional wine intake. FAMILY HISTORY: Noncontributory. REVIEW OF SYSTEMS: Significant for diabetes. Denies any chest pain or shortness of breath. No hist ory of DVT or PE. No known bleeding problems. PHYSICAL EXAMINATION: GENERAL: Shows a pleasant middle-aged male. Looks to be in pretty good health. HEENT: Benign. NECK: Supple. No lymphadenopathy. LUNGS: Clear to auscultation. HEART: Regular rate and rhythm. ABDOMEN: Soft, nontender, nondistended. EXTREMITIES: Grossly neurovascularly intact except as follows. Examination of the left knee reveals the patient walks independently. He limps a little bit on the l eft side. Slight varus alignment to his knee. Tender over the medial joint line. Small knee effusi on. Range of motion is 0-125. No instability. X-RAYS: X-rays of the left knee reviewed. It shows advanced medial compartment DJD best seen on the 40-degree flexion films. He has got complete loss of his joint space. There is some small osteophy mirta medially. The right knee replacement looks to be in good position without problems. ASSESSMENT: A 81-year-old male with a history of right knee replacement in the past as well as right hip replacement with left knee degenerative joint disease. He has failed conservative treatment and would like to have his knee fixed. PLAN: We will take him to the operating room and do left total knee replacement. Risks and benefits of this procedure were explained to the patient and include but not limited to DVT, PE, , infec tion, neurological injury, vascular injury, bleeding problem, pain, limited range of motion, stiffnes s, incomplete relief of symptoms, etc. The patient understands and desires to proceed. Informed con sent was obtained. As far as discharge plans, he is planning to be discharged to home using [employer] cesar gonzalez Job ID: [id number]
--- NOTE | 2021-08-03 08:39 | Anesthesiology Consultation ---
Date of Service August 03, 2021 Assessment & Plan (1) Encounter for pre-operative examination: - check BSG am DOS. - cardiology office visit 06/21/21 [place]: "...Longstanding history of coronary artery disease. Plain balloon angioplasty to left circumflex and LAD in 1991. Three-vessel bypass surgery 2014. 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 No chest pain or other anginal type pains...acceptable cardiac risk to undergo his planned knee replacement surgery scheduled in July 2021..." - COVID screening: Per screen vent binder on 08/02/2021: Travel screen-traveled to [place] and attended large group event 07/30/21-400-500 people. Case reviewed by anesthesia admin and patient was recommended on waiting for pre-op testing 08/05 for interval from event or if not agreeable can undergo cepheid testing am DOS due to high risk event acceptable per Dr. Gooden. Patient is not agreeable to delaying surgery and order placed for cepheid am DOS. 08/02/21 COVID test negative. To anesthesiologist discretion if additional testing, PPE or surgery time needed. Chart Review Chart Review: Acceptable Risk for Surgery and Patient NOT seen in Pre Admission Testing History Surgery Operation Date: 08/04/21 07:00 Proposed Procedures p Left Total Knee Arthroplasty - Dillon Zaldivar MD Height/Weight Height: 5 ft 10 in Weight: 101.151 kg Allergies Allergy/AdvReac Type Severity Reaction Status Date / Time metoprolol AdvReac Unknown C/I 2/2 Verified 08/02/21 13:38 asthma steroids AdvReac Intermediate ears get Uncoded 08/02/21 13:39 fire red and itch Medications Home Medications Medication Instructions Recorded Confirmed Last Taken magnesium chloride 71.5 mg 1 tab PO PM 12/01/17 08/02/21 01/19/20 (magnesium chloride) tablet,delayed release (Slow-Mag) omega 0-rpc-tzz-fish oil 1,000 mg 1 cap PO BID 12/01/17 08/02/21 01/19/20 (120 mg-180 mg) capsule (Fish Oil) potassium 99 mg tablet 99 mg PO PM 12/01/17 08/02/21 01/19/20 aspirin 81 mg tablet,delayed 81 mg PO PM 08/10/18 08/02/21 01/19/20 release (Adult Aspirin Regimen) cholecalciferol (vitamin D3) 10 1 unit PO PM 08/30/18 08/02/21 01/19/20 mcg (400 unit) chewable tablet (Vitamin D3) loratadine 10 mg capsule 10 mg PO QAM 03/14/19 08/02/21 01/19/20 ibuprofen 200 mg tablet 400 mg PO BID tab 12/17/19 08/02/21 01/19/20 acetaminophen 500 mg tablet 1,000 mg PO BID tab 06/29/20 08/02/21 Unknown (Tylenol Extra Strength) ezetimibe 10 mg tablet (Zetia) 10 mg PO QAM #90 tab 11/23/20 08/02/21 Unknown mineral oil See Rx Instructions MISCELLANEOUS 12/21/20 08/02/21 Unknown PM tadalafil 5 mg tablet 5 mg PO QAM 04/06/21 08/02/21 Unknown omeprazole 20 mg tablet,delayed 20 mg PO QAM #90 tab 04/16/21 08/02/21 Unknown release metformin 500 mg tablet 500 mg PO QAM #90 tab 05/10/21 08/02/21 Unknown rosuvastatin 40 mg tablet (Crestor) 40 mg PO QPM #90 tab 06/28/21 08/02/21 Unknown valsartan 80 1 tab PO QAM #90 tab 07/02/21 08/02/21 Unknown mg-hydrochlorothiazide 12.5 mg tablet (Diovan HCT) amino acids (Amino Acid) 1 cap PO QAM 08/02/21 08/02/21 Unknown famotidine 20 mg tablet (Acid 20 mg PO PM 08/02/21 08/02/21 Unknown Corn Breeder (famotidine)) zolpidem 5 mg tablet (Ambien) 5 mg PO HS 08/02/21 08/02/21 Unknown Past Medical History Medical History (Updated 08/03/21 @ 08:30 by Melita Ellison PA-C) Anemia pre-op H&H 07/2021: 12 BPH (benign prostatic hyperplasia) CAD (coronary artery disease) 1991 -- cardiac cath with balloon angioplasty to left Cx and LAD 2014 -- CABG x 3 Degenerative disc disease S/p multiple surgeries GERD (gastroesophageal reflux disease) Controlled per patient Hip dislocation, right Dislocation after replacement surgery No current issues History of asthma Did have full work up at [facility]- no asthma No current breathing issues Hyperlipidemia Hypertension Leukoplakia TOP OF MOUTH LESION BIOPSIED No family history of adverse response to anesthesia TIHSA (obstructive sleep apnea) Non-compliant with CPAP Prediabetes On Metformin Temporomandibular joint disorder No issues x years per patient Past Family History Family History Mother Cardiac disorder Hypertension Heart disease Myocardial infarction Father Heart disease Sister Hypertension Other No family history of adverse response to anesthesia No family history of bleeding disorder No pertinent family history Denies family history of Ovarian cancer Prostate cancer Diabetes Breast cancer Lung cancer Colorectal cancer Stroke Past Surgical History Surgical History Fingertip amputation LT INDEX PARTIAL AMPUTATION H/O foot surgery RT/Left foot History of arthroscopy RT SHOULDER, LT KNEE History of back surgery 4 TOTAL BACK SURGERIES (LUMBAR FUSION) History of cardiac cath 1991 - ANGINA - [facility] - ANGIOPLASTY 2014 - ABN STRESS TEST - [facility] - NO STENTS/ANGIOPLASTY --> CABG History of cataract surgery RT/LEFT History of colonoscopy History of coronary artery bypass graft 2014 - [facility] - 3 VESSELS - FOLLOWS WITH DR. GONSALVES History of esophagogastroduodenoscopy (EGD) History of herniorrhaphy History of rectal sphincterotomy History of right hip replacement X 2 History of surgery TRANSURETHRAL NEEDLE ABLATION OF PROSTATE History of tooth extraction History of total knee replacement RT Hx of vasectomy Nausea and vomiting after administration of anesthetic agent WITH GENERAL ANESTHESIA Social History Smoking Status: Former smoker tobacco type: cigarettes Do You Dip or Chew Tobacco: No Smoking End Date: 1972 Hx Alcohol Use: Yes Alcohol type: beer and wine alcohol intake frequency: a few times a month Hx Substance Use: No substance use type: does not use Last Used Substance Other:: HX MEDICAL MARIJAUNA USED (NO LONGER USES "DID NOT HELP WITH BACK PAIN") Lab Results Anesthesia Preop Results Results Anesthesia Widget: WBC 3.39 K/uL (4.8-10.8) L 06/21/21 Hgb 12.2 g/dL (14.0-18.0) L 06/21/21 Hct 37.9 % (42-52) L 06/21/21 Plt 155 K/uL (130-400) 06/21/21 Na 140 mmol/L (136-145) 06/21/21 K 3.8 mmol/L (3.5-5.1) 06/21/21 Cl 104 mmol/L (98-107) 06/21/21 CO2 28 mmol/L (21-32) 06/21/21 BUN 26 mg/dl (6-23) H 06/21/21 Creat 1.08 mg/dl (0.6-1.4) 06/21/21 Glucose Level 118 mg/dl (70-99(Fasting)) H 06/21/21 PT 10.9 Seconds (9.0-12.0) 06/21/21 INR 1.0 (0.9-1.1) 06/21/21 Blood Type B Positive 06/21/21 Antibody Screen NEGATIVE 06/21/21 Testing Laboratory Results Chronic leukopenia and anemia. Electrocardiogram Date: 04/06/21 Sinus bradycardia, rate 51 bpm Rightward axis Incomplete RBBB Chest X-Ray Date: 04/06/21 Frontal and lateral radiographs of the chest demonstrate the cardiomediastinal silhouette to be within normal limits. The patient is status post previous cardiothoracic surgery. The lungs are clear of alveolar opacities. There is no evidence for effusion bilaterally. There is no evidence for vascular congestion. There is no acute osseous pathology. IMPRESSION: No acute cardiopulmonary disease. Echocardiogram Date: 07/24/18 EF 55-60% Grade I diastolic dysfunction Mild cLVH Mildly dilated left atrium Mild mitral regurgitation Stress Test Date: 01/07/21 Dobutamine MPHR 91% Normal without evidence of inducible ischemia Moderate cLVH Mildly dilated left atrium Mildly dilated right ventricle Mildly dilated aortic root Mild aortic sclerosis
[~2021-08-04 06:44] MED LIST changes: +ACETAMINOPHEN 500 MG TAB PO SCH; -ASPI81TA28 PO; +BUPIVACAINE 0.5 % 5 MG/1 ML PF 10ML VIAL ONE; +BUPIVACAINE LIPOSOME/PF 266 MG, BUPIVACAINE/EPINEPHRINE 50 ML, SODIUM CHLORIDE 0.9% 30 ... INFIL SCH; -CLR10 PO; -COEN75CA PO; -CRS/10 PO; +CeleBREX 200 MG CAP PO SCH; -DILT180C50 PO; -DVN80125 PO; -EZET10TA63 PO; +FAMOTIDINE 20 MG TAB PO SCH; +LR 500ML BOLUS, THEN 15ML/HR IV SCH; +LR 60ML/HR IV SCH; -MAGNTAB17 PO; +METOCLOPRAMIDE HCL 10 MG TABLET PO SCH; -OMEG10007 PO; -POTA99TA PO; -PRLSR20 PO; +ROPIVACAINE 0.5% 5 MG/ML 30 ML VIAL ONE; +TRANEXAMIC ACID 1,000 MG **IV Intra-op IV SCH; -ZOLP5TAB PO; +ceFAZolin 2000MG 2,000 MG/15 ML SYR IV SCH
--- NOTE | 2021-08-04 06:54 | History & Physical Bridge Note ---
Date of Service August 04, 2021 History & Physical Bridge Note I have examined the patient, reviewed the History & Physical and in the interval since the performance of the History & Physical I have noted the following changes of clinical significance: no changes noted
[2021-08-04] MEDS ORDERED: fentaNYL citrate 100 MCG/2 ML VIAL ONE (07:28)
[2021-08-04] MEDS ORDERED: MIDAZOLAM HCL 1 MG/ML 2ML VIAL ONE (07:28)
[2021-08-04] MEDS ORDERED: ePHEDrine sulfate 50 MG/ML AMP IV PRN (08:48)
[2021-08-04] MEDS ORDERED: fentaNYL citrate 100 MCG/2 ML VIAL IV PRN (08:48)
[2021-08-04] MEDS ORDERED: ONDANSETRON INJ 2 MG/ML 2 ML VIAL IV PRN ×2 (08:48→12:18)
[2021-08-04] MEDS ORDERED: ATROPINE SULFATE 0.1 MG/ML 10ML SYR IV PRN (08:48)
[2021-08-04] MEDS ORDERED: LABETALOL HCL IV 5 MG/ML 20ML IV PRN (08:48)
[2021-08-04] MEDS ORDERED: diphenhydrAMINE 50 MG/ML VIAL IV STA (08:49)
[2021-08-04] MEDS ORDERED: PROPOFOL IV EMULSION 10 MG/ML 20 ML VIAL IV ONE ×2 (09:01→10:41)
[2021-08-04] MEDS ORDERED: BUPIVACAINE/EPINEPHRINE 0.25% 1:200,000 30 ML VIAL ONE (09:11)
[2021-08-04] MEDS ORDERED: SODIUM CHLORIDE 0.9% PF 50 ML VIAL ONE (09:11)
[2021-08-04] MEDS ORDERED: BUPIVACAINE LIPOSOME 1.3% 266 MG/20 ML VIAL ONE (09:12)
[2021-08-04] MEDS ORDERED: GLYCOPYRROLATE 0.2 MG/ML VIAL ONE (10:37)
--- NOTE | 2021-08-04 11:17 | Operative Report ---
PG Post Operative Report Pre & Post Diagnosis Operation Date: 08/04/21 08:50 Pre-Op Diagnosis: Left knee osteoarthritis. Post-Op Diagnosis: Left knee osteoarthritis. I identified the patient and participated in the time-out.: Yes Procedure Operation Date: 08/04/21 08:50 Actual Procedures p Left Total Knee Arthroplasty(Left) - Dillon Zaldivar MD Surgeon Dillon Zaldivar MD Sole Tier Jonatan Pratt PA-C Estimated Blood Loss 50 Findings Consistent with Post-Op Diagnosis Operative findings revealed advanced left knee arthritis. He had grade 4 changes of the medial and patellofemoral compartment. He did not have much eburnation but just a full-thickness cartilage loss. Slight varus deformity to his knee. He did have a 10 to 15 degree flexion contracture preoperatively. Small knee joint effusion. Specimens Left knee sent for pathology Anesthesia Type Spinal MAC Complications none Disposition Accompanied Patient To Recovery: No Indications Patient is 81-year-old very active gentleman has had a long history of multiple joint problems. He said multiple joint replacements in the past. He did have a have a history of a left knee arthroscopy done years ago. Over the past several years he developed increased pain discomfort in his left knee. Failed conservative measures. He is happy with his other joints and just went to have his left knee replaced. Description of Procedure Operative implants consist of: 1. Biomet Vanguard size 75 left posterior stabilized femoral component. 2. Biomet size 83 tibial tray. 3. 10 mm posterior stabilized polyethylene insert. 4. 34 x 8 and half all polypatella. The patient was taken to the operating, identified, placed on the operating table supine position protectors were properly padded. IV antibiotics tried by anesthesia team. Spinal anesthetic and abductor canal block had been applied in the holding area. Jean catheter was placed in sterile fashion. Left atrium was then placed in the left lower extremities then prepped and draped in usual sterile fashion. The left leg was elevated exsanguinated with use of an Esmarch in terms playset 300 mmHg. An anterior approach to the left knee was then performed through longitudinal incision centered over the patella. Sharp dissection was got through subcutaneous tissue down the extensor mechanism. A medial parapatellar arthrotomy incision was made. Some subperiosteal dissection was carried out medially. The fat pad was dissected beneath patella tendon. Lateral patellofemoral ligament was released. Patella subluxated laterally and the knee was flexed. The osteophytes taken out distal femur. The ACL and PCL were then released from distal femur the tibia subluxated anteriorly. The external tibial alignment jig was then placed in the interface the tibia and adjusted 14 mm medially. Proximal tibial cut was made remove about 2 to 3 mm of bone from the most deficient aspect medial tibial plateau. He did not have a lot of bony wear. The tibia was then sized to a size 83. Attention drawn the femur. The distal femur stem with a sharp drill. Intramedullary canal was suction. A left 6 degree valgus cutting guide was placed. Distal femoral cutting block was pinned in place. Distal femoral cut was made to take an additional 5 mm off the distal femur to try and account for his flexion contracture. The femur was then sized to exactly a 75. The AP cutting block was pinned parallel to the epicondylar axis which was 4 degrees of external rotation. The anterior cut, anterior chamfer, posterior cut, posterior chamfer cuts were made. The box cutting guide was placed in just slight lateral box cut was made. The knee was flexed. The remnants of the medial and lateral menisci were excised. The osteophytes were taken off the posterior aspect the femur. A trial femoral component was placed. The tibial tray was pinned in maximum external rotation and the drill and stem punch used to create defect in the proximal tibia for the tibial tray. I did over punch this in order to increase the cement mantle. The knee was then trialed and the 10 mm insert fit most appropriately. It was a little bit lax but I was concerned if we tighten up anymore he would get extension. Attention drawn the patella. The patella was cleaned of all soft tissues. Patella thickness measured 27 mm in thickness was cut down to 16. It was sized to a size 34 patella. The lug holes were drilled for the 34 patella. The lateral osteophyte was removed. Patella button was placed. Knee was taken through range of motion and the pa tella tracked nicely with no thumbs test. Attention drawn to place the permanent components. Nupathe all trial components were removed. Bone plug was placed in the distal femur limit blood loss. Double batch Palacos G cement was mixed. BiomPikhubguard size 75 left posterior stabilized femoral component, a size 83 tibial tray, 10 mm posterior stabilized polyethylene insert, and a 34 x 8 Nephril probably patella were then cemented in place. The knee was brought out into full extension until cement hardened. Final cement check was then performed. Pericapsular tissues were injected with total 100 cc of combination of 20 cc of Exparel, 30 cc normal saline, 50 cc of quarter percent Marcaine with epinephrine. Patient did receive 1 g tranexamic acid. The tourniquet was let down for final tourniquet time of 61 minutes. Hemostasis assured use electrocautery. Extensor mechanism closed with combination 1 PDS suture #1 Vicryl suture in [id number] fashion. Extensor mechanism checked found to be intact and subcutaneous tissue then closed 2 Dexon suture in a buried interrupted fashion skin was closed skin jack. The leg was then cleaned and dried and a sterile dressing composed of Xeroform, 4 fours, sterile cast padding, Angel Luis bandage were applied. Patient then transferred to the recovery room in stable condition. Patient tolerated the procedure well and there were no complications. Jonatan Pratt, my physician senior administrative assistant, was present for the entire procedure. His assistance was essential and required for appropriate patient positioning, prepping and draping, surgical exposure, performing the technical details of the operation, placement the implants, closure of the wound, and placement of the sterile bandage. I attest to the content of the Intraoperative Record and any orders documented therein. Any exceptions are noted below.
--- NOTE | 2021-08-04 11:50 | Anesthesiology Progress Note ---
Date of Service August 04, 2021 Anesthesia Post Procedure Vital Signs Vital Signs: Temp Pulse Pulse Resp BP Pulse Ox 08/04/21 11:40 48 L 22 104/57 L 95 08/04/21 11:30 50 L 18 112/58 L 95 08/04/21 11:20 58 L 15 100/67 95 08/04/21 11:10 97.3 F L 61 12 95/56 L 97 08/04/21 07:16 98.1 F 67 18 131/63 95 Transfer of Care Handoff Completed per policy Notes Mental Status: alert / awake / arousable and participated in evaluation Patient Amnestic to Procedure: Yes Nausea / Vomiting: adequately controlled Pain: adequately controlled Airway Patency, RR, SpO2: stable & adequate BP & HR: stable & adequate Hydration State: stable & adequate Neuraxial Anesthesia: was administered and sensory block is resolving Anesthetic Complications: no major complications apparent and Pt Satisfied with anesthetic care
[2021-08-04] MEDS ORDERED: DEXTROSE 50% 50 ML SYRINGE IV PRN (12:18)
[2021-08-04] MEDS ORDERED: GLUCOSE 10 TABS/TUBE PO PRN (12:18)
[2021-08-04] MEDS ORDERED: CARBOHYDRATES FOR HYPOGLYCEMIA PO PRN (12:18)
[2021-08-04] MEDS ORDERED: oxyCODONE HCL IR 5 MG TAB (IMMEDIATE RELEASE) PO PRN (12:18)
[2021-08-04] MEDS ORDERED: MAGNESIUM HYDROXIDE SUSP 30 ML UDC PO PRN (12:18)
[2021-08-04] MEDS ORDERED: GLUCOSE 40% GEL 15 GM TUBE PO PRN (12:18)
[2021-08-04] MEDS ORDERED: GLUCAGON FOR INJ 1 MG VIAL SQ PRN (12:18)
[2021-08-04] MEDS ORDERED: NALOXONE HCL 0.4 MG/1 ML VIAL/CARP IV PRN (12:18)
[2021-08-04] MEDS ORDERED: ALUMINUM/MAGNESIUM SUSP 30 ML UDC PO PRN (12:18)
[2021-08-04] MEDS ORDERED: METOCLOPRAMIDE HCL INJ 5 MG/ML 2 ML VIAL IV PRN (12:18)
[2021-08-04] MEDS ORDERED: HYDROmorphone INJ 0.5 MG/0.5 ML SYR IV PRN (12:18)
[2021-08-04] MEDS ORDERED: bisacodyL 10 MG SUPP PR PRN (12:18)
[2021-08-04] MEDS ORDERED: PHARMACY GLYCEMIC MGMT CONSULT PRN (12:18)
--- NOTE | 2021-08-04 12:20 | XRay Report ---
XR knee LT 1 or 2V routine CLINICAL HISTORY: Surgical Post Op TECHNIQUE: 2 views of the left knee were obtained. Comparison: None available at the time of this dictation. FINDINGS: Patient is status post total knee arthroplasty with expected postsurgical changes including soft tiss ue swelling, subcutaneous emphysema, and surgical staple placement. No periarticular lucency or hardw are fracture is seen. Vascular calcifications are seen. IMPRESSION: Expected postoperative appearance status post total knee arthroplasty. ACT 112: Negative or not required by law. Electronically signed by: Dino Vazquez M.D. 08/04/2021 12:19 PM
[2021-08-04] MEDS: SODIUM CHLORIDE 0.9% 1000ML 1,000 ML IV SCH ×2 (13:42→23:36)
[2021-08-04] MEDS: ACETAMINOPHEN 500 MG TAB PO SCH ×2 (13:42→22:23)
[2021-08-04] MEDS: ASCORBIC ACID 500 MG TAB PO SCH (17:10)
[2021-08-04] MEDS: ceFAZolin 2000MG 2,000 MG/15 ML SYR IV SCH (17:11)
[2021-08-04] MEDS ORDERED: TRANEXAMIC ACID / 0.7% NACL 1,000 MG/100 ML BAG IV SCH (17:15)
[2021-08-04] MEDS: INSULIN ASPART PER UNIT SC SCH ×2 (17:26→20:57)
[2021-08-04] MEDS: KETOROLAC TROMETHAMINE 15 MG/ML VIAL IV SCH (18:38)
[2021-08-04] MEDS: OMEGA-3 (PURIFIED FISH OIL) 1 GM CAP PO SCH (20:57)
[2021-08-04] MEDS: TAPENTADOL HCL ER 50 MG TABCR PO SCH (20:58)
[2021-08-04] MEDS: ASPIRIN 81 MG ECTAB PO SCH (20:58)
[2021-08-04] MEDS: DOCUSATE SODIUM 100 MG CAP PO SCH (20:58)
[2021-08-04] MEDS ORDERED: CHOLECALCIFEROL 400 UNITS 10 MCG TAB PO SCH (21:00)
[2021-08-04] MEDS ORDERED: FAMOTIDINE 20 MG TAB PO SCH (21:00)
[2021-08-04] MEDS ORDERED: ZOLPIDEM TARTRATE 5 MG TAB PO SCH (21:00)
[2021-08-04] MEDS ORDERED: ROSUVASTATIN CALCIUM 20 MG TAB PO SCH (21:00)
[2021-08-04] MEDS ORDERED: SENNA 8.6 MG TAB PO SCH (21:00)
[2021-08-05] MEDS: ceFAZolin 2000MG 2,000 MG/15 ML SYR IV SCH (01:17)
[2021-08-05] MEDS: KETOROLAC TROMETHAMINE 15 MG/ML VIAL IV SCH ×2 (01:17→06:20)
[2021-08-05] MEDS: ACETAMINOPHEN 500 MG TAB PO SCH (06:21)
[2021-08-05] MEDS: SODIUM CHLORIDE 0.9% 1000ML 1,000 ML IV SCH (06:24)
[2021-08-05 06:44] LABS: Hematocrit (blood only) 30.6 % (42-52); Hemoglobin 9.8 g/dL (14.0-18.0); Mean Corpuscular Hemoglobin 26.8 pg (25-34); Mean Corpuscular Volume 83.8 fL (80-100); Mean Platelet Volume 12.7 fL (7.4-10.4); Platelet Count 115 K/uL (130-400); RDW Coefficient of Variation 13.6 % (11.5-14.5); RDW Standard Deviation 41.6 fL (36.4-46.3); Red Blood Count 3.65 M/uL (4.7-6.1); White Blood Count 5.57 K/uL (4.8-10.8)
[2021-08-05 06:47] LABS: BUN Creatinine Ratio 24.1 (10-20); Calcium 8.2 mg/dl (8.5-10.1); Creatinine Clr Calc Pharmacy 84.1 ml/min; Est GFR (Non-African American) 83.7 ml/min; Potassium 3.8 mmol/L (3.5-5.1)
--- NOTE | 2021-08-05 07:51 | Progress Notes ---
DATE OF SERVICE: 08/05/2021. SUBJECTIVE: A 81-year-old gentleman postoperative day 1 from a left knee replacement. He is doing p retty well. Pain has been controlled. No chest pain or shortness of breath. Not feeling dizzy or l ightheaded. He is hoping to go home. OBJECTIVE: VITAL SIGNS: Temperature 37.1. Vital signs are stable. GENERAL: Physical examination shows a pleasant middle-aged male. He is sitting up in bed and looks pretty comfortable this morning. LUNGS: Clear to auscultation. HEART: Has a regular rate and rhythm. ABDOMEN: Soft, nontender, nondistended. EXTREMITIES: Grossly neurovascularly intact except as follows: Examination of the left lower extrem ity reveals the dressing to be clean, dry, and intact. He can do a straight leg raise. He can dorsi flex and plantarflex his foot appropriately. He is neurologically intact. LABORATORY DATA: Hemoglobin 9.8. Hematocrit is 30.6. Electrolytes are stable. ASSESSMENT: A 81-year-old gentleman postoperative day 1 from a left knee replacement, doing well. P ain is controlled. He is neurologically intact. He has got quite a bit of experience with joint rep lacement. PLAN: 1. DVT prophylaxis includes thigh-high TEDs, SCDs, and aspirin twice a day. 2. PT/OT. He can weight bear as tolerated. Left total knee protocol. 3. Pain control, doing okay with current pain regimen. 4. Disposition: Plan to discharge to home with some home health later today if he does okay in [facility]. Job ID: [id number]
[2021-08-05] MEDS: INSULIN ASPART PER UNIT SC SCH (08:12)
[2021-08-05] MEDS: OMEGA-3 (PURIFIED FISH OIL) 1 GM CAP PO SCH (08:13)
[2021-08-05] MEDS ORDERED: MULTIVITAMIN TAB PO SCH (09:00)
[2021-08-05] MEDS ORDERED: TAMSULOSIN HCL 0.4 MG CAP PO SCH (09:00)
[2021-08-05] MEDS ORDERED: PANTOprazole 40 MG TAB PO SCH (09:00)
[2021-08-05] MEDS ORDERED: EZETIMIBE 10 MG TABLET PO SCH (09:00)
[2021-08-05] MEDS ORDERED: VALSARTAN 80 MG TAB PO SCH (09:00)
[2021-08-05] MEDS ORDERED: NON-FORMULARY MEDICATION (Amino Acids [Amino Acid] Capsule) PO SCH (09:00)
[2021-08-05] MEDS ORDERED: hydroCHLOROthiazide 25 MG TAB PO SCH (09:00)
[2021-08-05] MEDS ORDERED: DOCUSATE SODIUM/SENNA 50/8.6MG TAB PO SCH (09:00)
[2021-08-05] MEDS ORDERED: LORATADINE 10 MG TAB PO SCH (09:00)
[2021-08-05] MEDS: ASPIRIN 81 MG ECTAB PO SCH (09:06)
[2021-08-05] MEDS: ASCORBIC ACID 500 MG TAB PO SCH (09:06)
[2021-08-05] MEDS: DOCUSATE SODIUM 100 MG CAP PO SCH (09:06)
[2021-08-05] MEDS: TAPENTADOL HCL ER 50 MG TABCR PO SCH (09:10)
--- NOTE | 2021-08-13 06:35 | Discharge Summary ---
Date of Service August 13, 2021 Discharge Data Procedures Performed Operation Date: 08/04/21 08:50 Actual Procedures p Left Total Knee Arthroplasty(Left) - Dillon Zaldivar MD Hospital Course (1) Status post total left knee replacement: This patient is a 81 year old male admitted on 08/04/21 and underwent total knee arthroplasty. He tolerated the procedure well and there were no complications. Transferred to the PACU post op and later to the orthopedic floor for further care. He was given ancef for antibiotic prophylaxis. He was also given DAVID stockings, SCDs, and aspirin for DVT prophylaxis. Hemoglobin, hematocrit, and vital signs were monitored during his hospital stay and remained stable. Did not require any blood transfusions. There were no complications during his hospital stay. By post op day #1 the patient was tolerating a diabetic diet, pain was reasonably controlled with oral pain medicine, and he was participating in physical therapy. On post op day #1 the patient was discharged home and set up with home health care. He was given printed discharge instructions including prescriptions for extra strength tylenol, aspirin, toradol, oxycodone, zofran, and flomax. Continue physical therapy, weight bearing as tolerated. Continue DAVID stockings. Follow up approximately 2 weeks post op or sooner if there are problems or concerns. Coding Level of Care Code None Diagnoses Status post total left knee replacement Z96.652
== END 2021-08-05 11:36 | disposition home health service (06) ==
LOC: 3E 06:44 → ASU 06:44
DX: M65.162 Other infective (teno)synovitis, left knee; Z87.891 Personal history of nicotine dependence; I10 Essential (primary) hypertension; Z95.5 Presence of coronary angioplasty implant and graft; E78.5 Hyperlipidemia, unspecified; M17.12 Unilateral primary osteoarthritis, left knee; M25.762 Osteophyte, left knee; Z79.899 Other long term (current) drug therapy; I25.10 Atherosclerotic heart disease of native coronary artery without angina pectoris; Z79.82 Long term (current) use of aspirin

== ENCOUNTER 2022-01-14 09:03 | Inpatient (IN) ==
--- NOTE | 2021-12-17 11:26 | PAT Medication Instructions ---
Medication Instructions Date of Service December 17, 2021 Home Medications Medication Instructions Recorded omeprazole 20 mg tablet,delayed 20 mg PO QAM gerd #90 tabs 04/16/21 release metformin 500 mg tablet 500 mg PO QAM lower a1c #90 tabs 05/10/21 rosuvastatin 40 mg tablet (Crestor) 40 mg PO QPM #90 tabs 06/28/21 valsartan 80 1 tab PO QAM blood pressure #90 07/02/21 mg-hydrochlorothiazide 12.5 mg tabs tablet (Diovan HCT) famotidine 20 mg tablet (Acid 20 mg PO PM #90 tabs 08/30/21 Education Adviser (famotidine)) zolpidem 5 mg tablet (Ambien) 5 mg PO HS #60 tabs 10/27/21 ezetimibe 10 mg tablet (Zetia) 10 mg PO QAM cholesterol #90 tabs 11/18/21 amoxicillin 500 mg tablet 2,000 mg PO ONCE #4 tabs 12/17/21 magnesium chloride 71.5 mg (magnesium chloride) tablet,delayed release (Slow- Mag) 1 tab PO PM leg muscle cramps omega 6-osm-zcm-fish oil 1,000 mg (120 mg-180 mg) capsule (Fish Oil) 1 cap PO BID cholesterol potassium 99 mg tablet 99 mg PO PM leg muscle cramps cholecalciferol (vitamin D3) 10 mcg (400 unit) chewable tablet (Vitamin D3) 1 unit PO PM loratadine 10 mg capsule 10 mg PO QAM mineral oil See Rx Instructions miscellaneous PM tadalafil 5 mg tablet (Cialis) 5 mg PO QAM omeprazole 20 mg tablet,delayed release 20 mg PO QAM gerd metformin 500 mg tablet 500 mg PO QAM lower a1c rosuvastatin 40 mg tablet (Crestor) 40 mg PO QPM valsartan 80 mg-hydrochlorothiazide 12.5 mg tablet (Diovan HCT) 1 tab PO QAM blo od pressure famotidine 20 mg tablet (Acid Education Adviser (famotidine)) 20 mg PO PM zolpidem 5 mg tablet (Ambien) 5 mg PO HS ezetimibe 10 mg tablet (Zetia) 10 mg PO QAM cholesterol acetaminophen 500 mg capsule 1,000 mg PO BID Pain aspirin 81 mg tablet,delayed release (Royer Low Dose Aspirin) 81 mg PO QPM benzonatate 100 mg capsule 100 mg PO TID PRN Cough doxycycline hyclate 100 mg tablet 100 mg PO BID sore throat/cough ibuprofen 200 mg capsule 400 mg PO BID tamsulosin 0.4 mg capsule 0.4 mg PO QAM ASK your surgeon for instructions ibuprofen 200 mg capsule 400 mg PO BID ASK your prescriber and surgeon aspirin 81 mg tablet,delayed release (Royer Low Dose Aspirin) 81 mg PO QPM STOP taking 2 weeks before surgery (or as soon as possible if surgery is within 2 weeks) omega 1-eot-isb-fish oil 1,000 mg (120 mg-180 mg) capsule (Fish Oil) 1 cap PO BID cholesterol mineral oil See Rx Instructions miscellaneous PM DO NOT take the morning of surgery loratadine 10 mg capsule 10 mg PO QAM metformin 500 mg tablet 500 mg PO QAM lower a1c valsartan 80 mg-hydrochlorothiazide 12.5 mg tablet (Diovan HCT) 1 tab PO QAM blood pressure benzonatate 100 mg capsule 100 mg PO TID PRN Cough Take morning of surgery With a small sip of water, OTHERWISE NOTHING TO EAT OR DRINK AFTER MIDNIGHT: omeprazole 20 mg tablet,delayed release 20 mg PO QAM gerd ezetimibe 10 mg tablet (Zetia) 10 mg PO QAM cholesterol acetaminophen 500 mg capsule 1,000 mg PO BID Pain doxycycline hyclate 100 mg tablet 100 mg PO BID sore throat/cough tamsulosin 0.4 mg capsule 0.4 mg PO QAM Take evening before surgery magnesium chloride 71.5 mg (magnesium chloride) tablet,delayed release (Slow- Mag) 1 tab PO PM leg muscle cramps omega 7-icj-avq-fish oil 1,000 mg (120 mg-180 mg) capsule (Fish Oil) 1 cap PO BID cholesterol potassium 99 mg tablet 99 mg PO PM leg muscle cramps cholecalciferol (vitamin D3) 10 mcg (400 unit) chewable tablet (Vitamin D3) 1 unit PO PM rosuvastatin 40 mg tablet (Crestor) 40 mg PO QPM famotidine 20 mg tablet (Acid Education Adviser (famotidine)) 20 mg PO PM zolpidem 5 mg tablet (Ambien) 5 mg PO HS acetaminophen 500 mg capsule 1,000 mg PO BID Pain benzonatate 100 mg capsule 100 mg PO TID PRN Cough (if needed) doxycycline hyclate 100 mg tablet 100 mg PO BID sore throat/cough Other Notes If you have any questions please call us at [phone] or [phone] or [phone] or [phone]
--- NOTE | 2021-12-22 11:25 | Anesthesiology Consultation ---
Date of Service December 22, 2021 Assessment & Plan (1) Encounter for pre-operative examination: - acceptable to proceed overall with surgery pending change in booking sheet to overnight. - check BSG am DOS. - Outpatient joint pathway: Per surgeon and patient, plan for outpatient joint program. Upon review of chart-patient is NOT acceptable candidate for Same Day Joint Program from anesthesia perspective per discussion with Dr. Allen. - cardiology office visit 06/21/21 [place]: "...Longstanding history of coronary artery disease. Plain balloon angioplasty to left circumflex and LAD in 1991. Three-vessel bypass surgery 2014. 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 No chest pain or other anginal type pains...acceptable cardiac risk to undergo his planned knee replacement surgery scheduled in July 2021..." Chart Review Chart Review: Acceptable Risk for Surgery and Patient seen in Pre Admission Testing Teaching & Discussion Pre-Anesthesia Teaching/Discussion Notes: Instructed NPO after midnight before surgery, except medications with 15 cc of water. Medication instructions provided according to the PAT guidelines. History Surgery Operation Date: 01/14/22 12:25 Proposed Procedures p Left Reverse Total Shoulder Arthroplasty - David Vargas, DO Height/Weight Height: 5 ft 10 in Weight: 98 kg Allergies Allergy/AdvReac Type Severity Reaction Status Date / Time Androgenic Anabolic Steroid Allergy Intermediate Ears get Verified 12/17/21 10:38 red and itch, facial flushing for several days metoprolol AdvReac Unknown C/I 2/2 Verified 12/17/21 10:38 asthma Medications Home Medications Medication Instructions Recorded Confirmed Last Taken magnesium chloride 71.5 mg 1 tab PO PM leg muscle cramps 12/01/17 12/17/21 08/03/21 22:00 (magnesium chloride) tablet,delayed release (Slow-Mag) omega 5-jez-joa-fish oil 1,000 mg 1 cap PO BID cholesterol 12/01/17 12/17/21 07/20/21 (120 mg-180 mg) capsule (Fish Oil) potassium 99 mg tablet 99 mg PO PM leg muscle cramps 12/01/17 12/17/21 08/03/21 cholecalciferol (vitamin D3) 10 1 unit PO PM 08/30/18 12/17/21 07/27/21 mcg (400 unit) chewable tablet (Vitamin D3) loratadine 10 mg capsule 10 mg PO QAM 03/14/19 12/17/21 07/05/21 mineral oil See Rx Instructions miscellaneous 12/21/20 12/17/21 08/01/21 PM tadalafil 5 mg tablet (Cialis) 5 mg PO QAM 04/06/21 12/17/21 08/02/21 22:00 omeprazole 20 mg tablet,delayed 20 mg PO QAM gerd #90 tabs 04/16/21 12/17/21 08/04/21 05:30 release metformin 500 mg tablet 500 mg PO QAM lower a1c #90 tabs 05/10/21 12/17/21 08/03/21 09:00 rosuvastatin 40 mg tablet (Crestor) 40 mg PO QPM #90 tabs 06/28/21 12/17/21 08/03/21 22:00 valsartan 80 1 tab PO QAM blood pressure #90 07/02/21 12/17/21 08/03/21 09:00 mg-hydrochlorothiazide 12.5 mg tabs tablet (Diovan HCT) famotidine 20 mg tablet (Acid 20 mg PO PM #90 tabs 08/30/21 12/17/21 Unknown Survey Research Teacher (famotidine)) zolpidem 5 mg tablet (Ambien) 5 mg PO HS #60 tabs 10/27/21 12/17/21 Unknown ezetimibe 10 mg tablet (Zetia) 10 mg PO QAM cholesterol #90 tabs 11/18/21 12/17/21 Unknown acetaminophen 500 mg capsule 1,000 mg PO BID Pain 12/16/21 12/17/21 Unknown aspirin 81 mg tablet,delayed 81 mg PO QPM 12/16/21 12/17/21 Unknown release (Royer Low Dose Aspirin) benzonatate 100 mg capsule 100 mg PO TID PRN Cough 12/16/21 12/17/21 Unknown doxycycline hyclate 100 mg tablet 100 mg PO BID sore throat/cough 12/16/21 12/17/21 Unknown ibuprofen 200 mg capsule 400 mg PO BID 12/16/21 12/17/21 Unknown tamsulosin 0.4 mg capsule 0.4 mg PO QAM 12/16/21 12/17/21 Unknown amoxicillin 500 mg tablet 2,000 mg PO ONCE #4 tabs 12/17/21 Unknown Past Medical History Medical History (Updated 12/23/21 @ 09:14 by Melita Ellison PA-C) Anemia chronic per pt, pre-op 11/2021 H&H: BPH (benign prostatic hyperplasia) CAD (coronary artery disease) 1991 -- cardiac cath with balloon angioplasty to left Cx and LAD 2014 -- CABG x 3 Degenerative disc disease S/p multiple surgeries Dilated aortic root mild per 2020 stress echo GERD (gastroesophageal reflux disease) Controlled per patient Hip dislocation, right Dislocation after replacement surgery No current issues History of asthma Did have full work up at [facility]- no asthma No current breathing issues History of COVID-September 23, 2021 - sore throat. no remaining issues, has since developed a URI and was treated at [facility] 12/13/21 and put on 7 days of doxycycline and tessalon pearles. Hyperlipidemia Hypertension controlled, stable per pt Leukoplakia TOP OF MOUTH LESION BIOPSIED LVH (left ventricular hypertrophy) moderate TISHA (obstructive sleep apnea) Non-compliant with CPAP T2DM (type 2 diabetes mellitus) NIDDM Temporomandibular joint disorder denies clicking or locking in recent yrs per pt Thrombocytopenia Plt WNL pre-op 12/22/21 URI (upper respiratory infection) treated on 12/13/21 at [facility], started on abx for 7 days and tessalon pearles. negative home covid test. no other testing done at the time. Patient denies h/o stroke, seizures, heart failure, blood clots or blood transfusions. Exercise / Class Metabolic Activity II 4-5 Yardwork/Stairs/Walk up hill (denies CP or SOB with 1 FOS) Past Family History Family History Mother Cardiac disorder Hypertension Heart disease Myocardial infarction Father Heart disease Sister Hypertension Other No family history of adverse response to anesthesia No family history of bleeding disorder No pertinent family history Denies family history of Ovarian cancer Prostate cancer Diabetes Breast cancer Lung cancer Colorectal cancer Stroke Past Surgical History Surgical History (Updated 12/22/21 @ 11:56 by Melita Ellison PA-C) Fingertip amputation LT INDEX PARTIAL AMPUTATION H/O foot surgery RT/Left foot History of arthroscopy RT SHOULDER, LT KNEE History of back surgery 4 TOTAL BACK SURGERIES (LUMBAR FUSION) History of cardiac cath 1992 - [facility] - [facility] - ANGIOPLASTY 2015 - ABN STRESS TEST - [facility] - NO STENTS/ANGIOPLASTY --> CABG History of cataract surgery RT/LEFT History of colonoscopy History of coronary artery bypass graft 2014 - [facility] - 3 VESSELS - FOLLOWS WITH DR. GONSALVES History of esophagogastroduodenoscopy (EGD) History of herniorrhaphy History of rectal sphincterotomy History of right hip replacement X 2. revision 12/15/17: SAB L3-L4 1 attempt. History of surgery TRANSURETHRAL NEEDLE ABLATION OF PROSTATE History of tooth extraction History of total knee replacement RT and LT. 08/04/21: SAB L4-L5 + PNB. Hx of vasectomy Nausea and vomiting after administration of anesthetic agent denies needing scop patch Past Anesthesia History No Hx of Anesthesia Complications and No Family Hx of Anesthesia Complications History of PONV No Hx of Motion Sickness and History of PONV (denies needing scop patch) Social History Smoking Status: Former smoker tobacco type: cigarettes Do You Dip or Chew Tobacco: No Smoking End Date: 1972 Hx Alcohol Use: Yes Alcohol type: beer and wine alcohol intake frequency: a few times a month Hx Substance Use: No substance use type: does not use Last Used Substance Other:: HX MEDICAL MARIJAUNA USED (NO LONGER USES "DID NOT HELP WITH BACK PAIN") Review of Systems Slight residual cough per pt; occasional productive, improving per pt. States fully completed Rx antibiotic course. Patient denies chest pain, shortness of breath, dyspnea on exertion, fever, chills, wheezing, or palpitations. Physical Exam Vital Signs Vitals BP 111/62 P 58 TEMP 98.3 SP02 96% on RA RESP 17 Physical Full cervical extension range of motion without pain TMD 3.5 finger breadths Mallampati Score 2 Dentition: intact, several caps/crowns; permanent bridge left lower side; denies chipped or loose teeth Lungs: normal respiratory effort. Clear throughout to auscultation, no adven titious breath sounds Cardiac: regular rate and rhythm, no murmurs noted Carotid arteries: negative bruit bilat Lab Results Anesthesia Preop Results Results Anesthesia Widget: WBC 4.30 K/ul (4.8-10.8) L 12/22/21 Hgb 11.2 g/dl (14.0-18.0) L 12/22/21 Hct 35.1 % (40.1-51.0) L 12/22/21 Plt 149 K/uL (130-400) 12/22/21 Na 138 mmol/L (136-145) 12/22/21 K 4.0 mmol/L (3.5-5.1) 12/22/21 Cl 106 mmol/L (98-107) 12/22/21 CO2 26 mmol/L (21-32) 12/22/21 BUN 25 mg/dl (6-23) H 12/22/21 Creat 0.99 mg/dl (0.6-1.4) 12/22/21 Glucose Level 95 mg/dl (70-99(Fasting)) 12/22/21 POC Glucose 105 mg/dl (70-99) H 11/18/21 PT 10.6 Seconds (9.0-12.0) 12/22/21 PTT 24.2 Seconds (21.0-31.0) 12/22/21 INR 1.0 (0.9-1.1) 12/22/21 Blood Type B Positive 12/22/21 Antibody Screen NEGATIVE 12/22/21 Testing Electrocardiogram Date: 04/06/21 Sinus bradycardia, rate 51 bpm Rightward axis Incomplete RBBB Chest X-Ray Date: 04/06/21 No acute cardiopulmonary abnormalities Echocardiogram Date: 07/24/18 EF 55-60% Mild cLVH Grade I LV diastolic dysfunction Mild LA dilatation Aortic valve sclerosis without stenosis Mild mitral regurgitation Small localized posterior pericardial effusion Stress Test Date: 01/07/21 MPHR 91% Negative dobutamine stress echo Moderate cLVH Mildly dilated LA and RV Mildly dilated aortic root Mild aortic sclerosis
--- NOTE | 2022-01-13 13:13 | History & Physical Report ---
Date of Service January 13, 2022 Assessment & Plan (1) Left rotator cuff tear: We will proceed with a left reverse shoulder arthroplasty. Postoperatively he will be placed in a sling and kept overnight in the hospital for postoperative medical management. He plans to use energy physical therapy upon discharge. History of Present Illness Chief Complaint: Cuff tear arthropathy of the left shoulder. Primary Care Provider: Mikel Coates MD Ahmet is a pleasant 81-year-old male who has been dealing with chronic left shoulder pain. He underwent a rotator cuff repair by Dr. Piña in [place] about 15 years ago. He was then having pain afterwards. He had a repeat MRI in 2008, which showed a retear of the rotator cuff. He has had shoulder pain over the last 12 to 13 years. It is getting worse. He has trouble reaching away from his body or doing anything up overhead. It hurts him at night. He had another MRI of his shoulder, which shows a large rotator cuff tear with some retraction. It also shows some [id number] glenohumeral arthritis. After failing years of conservative treatment, including multiple injections, he has elected to proceed with a left reverse shoulder arthroplasty. Allergies Allergy/AdvReac Type Severity Reaction Status Date / Time Androgenic Anabolic Steroid Allergy Intermediate Ears get Verified 01/05/22 13:16 red and itch, facial flushing for several days metoprolol AdvReac Unknown C/I 2/2 Verified 01/05/22 13:16 asthma Home Medications Medication Instructions Recorded Confirmed Type magnesium chloride 71.5 mg 1 tab PO PM leg muscle cramps 12/01/17 01/05/22 History (magnesium chloride) tablet,delayed release (Slow-Mag) omega 6-gzu-rvg-fish oil 1,000 mg 1 cap PO BID cholesterol 12/01/17 01/05/22 History (120 mg-180 mg) capsule (Fish Oil) potassium 99 mg tablet 99 mg PO PM leg muscle cramps 12/01/17 01/05/22 History cholecalciferol (vitamin D3) 10 1 unit PO PM 08/30/18 01/05/22 History mcg (400 unit) chewable tablet (Vitamin D3) loratadine 10 mg capsule 10 mg PO QAM 03/14/19 01/05/22 History mineral oil See Rx Instructions miscellaneous 12/21/20 01/05/22 History PM tadalafil 5 mg tablet (Cialis) 5 mg PO QAM 04/06/21 01/05/22 History omeprazole 20 mg tablet,delayed 20 mg PO QAM gerd #90 tabs 04/16/21 01/05/22 Rx release metformin 500 mg tablet 500 mg PO QAM lower a1c #90 tabs 05/10/21 01/05/22 Rx rosuvastatin 40 mg tablet (Crestor) 40 mg PO QPM #90 tabs 06/28/21 01/05/22 Rx valsartan 80 1 tab PO QAM blood pressure #90 07/02/21 01/05/22 Rx mg-hydrochlorothiazide 12.5 mg tabs tablet (Diovan HCT) famotidine 20 mg tablet (Acid 20 mg PO PM #90 tabs 08/30/21 01/05/22 Rx Innovations Paraprofessional (famotidine)) zolpidem 5 mg tablet (Ambien) 5 mg PO HS #60 tabs 10/27/21 01/05/22 Rx ezetimibe 10 mg tablet (Zetia) 10 mg PO QAM cholesterol #90 tabs 11/18/21 01/05/22 Rx acetaminophen 500 mg capsule 1,000 mg PO BID Pain 12/16/21 01/05/22 History aspirin 81 mg tablet,delayed 81 mg PO QPM 12/16/21 01/05/22 History release (Royer Low Dose Aspirin) ibuprofen 200 mg capsule 400 mg PO BID 12/16/21 01/05/22 History tamsulosin 0.4 mg capsule 0.4 mg PO QAM 12/16/21 01/05/22 History amoxicillin 500 mg tablet 2,000 mg PO ONCE DENTAL PROCEDURE 01/03/22 01/05/22 Rx POST OP TOTAL HIP #4 tabs Past Med/Surg History Medical History Anemia chronic per pt, pre-op 11/2021 H&H: BPH (benign prostatic hyperplasia) CAD (coronary artery disease) 1991 -- cardiac cath with balloon angioplasty to left Cx and LAD 2014 -- CABG x 3 Degenerative disc disease S/p multiple surgeries Dilated aortic root mild per 2020 stress echo GERD (gastroesophageal reflux disease) Controlled per patient Hip dislocation, right Dislocation after replacement surgery No current issues History of asthma Did have full work up at [facility]- no asthma No current breathing issues History of COVID-19 September 23, 2021 - sore throat. no remaining issues, has since developed a URI and was treated at [facility] 12/13/21 and put on 7 days of doxycycline and tessalon pearles. Hyperlipidemia Hypertension controlled, stable per pt Leukoplakia TOP OF MOUTH LESION BIOPSIED LVH (left ventricular hypertrophy) moderate TISHA (obstructive sleep apnea) Non-compliant with CPAP T2DM (type 2 diabetes mellitus) NIDDM Temporomandibular joint disorder denies clicking or locking in recent yrs per pt Thrombocytopenia Plt WNL pre-op 12/22/21 URI (upper respiratory infection) treated on 12/13/21 at [facility], started on abx for 7 days and tessalon pearles. negative home covid test. no other testing done at the time. Surgical History Fingertip amputation LT INDEX PARTIAL AMPUTATION H/O foot surgery RT/Left foot History of arthroscopy RT SHOULDER, LT KNEE History of back surgery 4 TOTAL BACK SURGERIES (LUMBAR FUSION) History of cardiac cath 1991 - [facility] - [facility] - ANGIOPLASTY 2014 - ABN STRESS TEST - [facility] - NO STENTS/ANGIOPLASTY --> CABG History of cataract surgery RT/LEFT History of colonoscopy History of coronary artery bypass graft 2014 - [facility] - 3 VESSELS - FOLLOWS WITH DR. GONSALVES History of esophagogastroduodenoscopy (EGD) History of herniorrhaphy History of rectal sphincterotomy History of right hip replacement X 2. revision 12/15/17: SAB L3-L4 1 attempt. History of surgery TRANSURETHRAL NEEDLE ABLATION OF PROSTATE History of tooth extraction History of total knee replacement RT and LT. 08/04/21: SAB L4-L5 + PNB. Hx of vasectomy Nausea and vomiting after administration of anesthetic agent denies needing scop patch Family History Mother Cardiac disorder Hypertension Heart disease Myocardial infarction Father Heart disease Sister Hypertension Other No family history of adverse response to anesthesia No family history of bleeding disorder No pertinent family history Denies family history of Ovarian cancer Prostate cancer Diabetes Breast cancer Lung cancer Colorectal cancer Stroke Social History Smoking Status: Former smoker Age Started Using Tobacco: 17; Age Quit Using Tobacco: 52; packs per day: 1; Years Smoked: 35; Second Hand Exposure: No; Hx Alcohol Use: Yes Alcohol type: beer and wine Alcohol Intake Frequency: 2-4 x/Month Hx Substance Use: No Preferred Language: Korean Communication Ability: Effective Visual Impairment: Limited Hearing Ability: Normal Product Architect Required: No Beliefs That Will Affect Care: None marital status: Current Living Situation: Spouse current occupational status: retired How many Children do You have: 2 Feels Safe at Home: Yes Childhood Exposure to Second-Hand Smoke: Yes caffeine: Yes Dental Care, Regularly: Yes Physical Activity Frequency: Does not Exercise Seatbelt Use: always Sunscreen Use: Yes Review of Systems All systems reviewed & are unremarkable except as noted in HPI & below. Physical Exam On physical examination of the left shoulder, he is about 130 degrees of forward elevation and 130 degrees of abduction. He has 4 out of 5 motor strength with full can testing and external rotation.. Constitutional WD/WN, vitals as above Eyes PERRL, conjunctivae normal, anicteric sclerae ENMT external ear and nose normal, oropharynx normal Neck trachea midline, no thyromegaly Respiratory normal respiratory effort, lungs clear to auscultation Cardiovascular RRR, no murmur, no edema Gastrointestinal (Abdomen) normal bowel sounds, soft, nontender, no hepatosplenomegaly Skin no rashes, warm and dry Psychiatric A+Ox3, euthymic affect Results & Data Results & Data Laboratory Results . Diagnostic Findings X-rays of the left shoulder show some superior migration of the humeral head on the glenoid. There is moderate glenohumeral arthritis. MRI of the left shoulder shows a chronic retracted rotator cuff tear.. PG Care Time/CCT Total # of Minutes Spent Total Time Spent with Patient: Total time spent is greater than 50% in coordination of care (as documented) at patient's floor/unit and/or counseling patient: Coding Level of Care Code None Diagnoses Left rotator cuff tear M75.102
[~2022-01-14 09:03] MED LIST changes: -BUPIVACAINE LIPOSOME/PF 266 MG, BUPIVACAINE/EPINEPHRINE 50 ML, SODIUM CHLORIDE 0.9% 30 ... INFIL SCH; -CeleBREX 200 MG CAP PO SCH; +GABAPENTIN 300 MG CAP PO SCH; +LR 15ML/HR IV SCH; -LR 500ML BOLUS, THEN 15ML/HR IV SCH; -METOCLOPRAMIDE HCL 10 MG TABLET PO SCH; +ORTHO JOINT MIX INFIL SCH; -ROPIVACAINE 0.5% 5 MG/ML 30 ML VIAL ONE; +TRANEXAMIC ACID 1,000 MG **IV Pre-op IV SCH; +dexAMETHasone 4 MG TAB PO SCH
[2022-01-14] MEDS ORDERED: fentaNYL citrate 100 MCG/2 ML VIAL ONE (10:40)
[2022-01-14] MEDS ORDERED: MIDAZOLAM HCL 1 MG/ML 2ML VIAL ONE (10:40)
--- NOTE | 2022-01-14 10:42 | History & Physical Bridge Note ---
Date of Service January 14, 2022 History & Physical Bridge Note I have examined the patient, reviewed the History & Physical and in the interval since the performance of the History & Physical I have noted the following changes of clinical significance: no changes noted
[2022-01-14] MEDS ORDERED: ORTHO JOINT ANESTHETIC ONE (11:03)
[2022-01-14] MEDS ORDERED: ePHEDrine sulfate 50 MG/ML AMP IV PRN (11:20)
[2022-01-14] MEDS ORDERED: ATROPINE SULFATE 0.1 MG/ML 10ML SYR IV PRN (11:20)
[2022-01-14] MEDS ORDERED: fentaNYL citrate 100 MCG/2 ML VIAL IV PRN (11:20)
[2022-01-14] MEDS ORDERED: ONDANSETRON INJ 2 MG/ML 2 ML VIAL IV PRN ×2 (11:20→14:03)
[2022-01-14] MEDS ORDERED: SUCCINYLCHOLINE 100MG/5ML SYR IV ONE (12:10)
[2022-01-14] MEDS ORDERED: LIDOCAINE 2% MPF LOCAL 5 ML VIAL INFIL ONE (12:10)
[2022-01-14] MEDS ORDERED: PROPOFOL IV EMULSION 10 MG/ML 20 ML VIAL IV ONE (12:10)
[2022-01-14] MEDS ORDERED: ePHEDrine sulfate 50 MG/ML AMP ONE (12:10)
--- NOTE | 2022-01-14 12:40 | Operative Report ---
PG Post Operative Report Pre & Post Diagnosis Operation Date: 01/14/22 11:40 Pre-Op Diagnosis: Cuff tear arthropathy of the left shoulder with tendinopathy long head of the biceps tendon Post-Op Diagnosis: Cuff tear arthropathy of the left shoulder with tendinopathy of the long head of the biceps tendon I identified the patient and participated in the time-out.: Yes Procedure Operation Date: 01/14/22 11:40 Actual Procedures p Left Reverse Total Shoulder Arthroplasty, Uncemented(Left) - David Vargas DO with open biceps tenodesis as a distinct and separate procedure (modifier 59) Surgeon David Vargas DO Senior Software Project Manager David Izaguirre PA-C Estimated Blood Loss 200 Findings Consistent with Post-Op Diagnosis Specimens Left humeral head Description of Procedure A CPT code modifier 59: The long head of the biceps tendon was enlarged and inflamed consistent with tendinopathy. A tenodesis was opted. This was a separate and distinct portion of the procedure. For these reasons, a CPT code modifier 59 will be added to this case. Implants used: I used a [employer]omet Comprehensive reverse total shoulder arthroplasty system with a size 17 press fit micro humeral stem, a +3 offset humeral tray and a standard humeral bearing, a 25 mm small augment baseplate with a 6.5 mm central screw and superior and inferior locking screws, and a size 40 mm eccentric glenosphere. Ahmet arrived at [facility] for the above procedure. He was seen in the preoperative holding area and the operative extremity was identified and signed. He was given a preoperative antibiotic, TXA, and an interscalene nerve block. He was taken back to the operating room, laid on table in supine positio n, and put under general anesthesia. He was then put into the beachchair position. The shoulder was then prepped and draped in sterile fashion. A timeout was done and the patient and the operative extremity was properly identified. A deltopectoral approach was used. Dissection was taken down through the fascia and the deltoid was retracted laterally and the conjoined tendon was retracted medially. The anterior shoulder was exposed. The biceps groove was opened up and the biceps tendon was examined extensively. The biceps tendon demonstrated enlargement and inflammatory changes consistent with longstanding inflammation in the context of osteoarthritis and cuff arthropathy. The long head of the biceps tendon was then tenodesed to the upper border of the pectoralis major. This was a separate and distinct portion of the procedure. The subscapularis was then directly released off the lesser tuberosity with a peel technique. The inferior capsule was released and the humeral head was dislocated. A canal finding reamer was sent down the center of the humeral canal. Sequential reaming up to a size 17 reamer was done. Off that reamer, a proximal humeral resection guide was placed. The proximal humerus was resected at 135 of inclination and 25 of retroversion. Osteophytes were then removed and the glenoid was exposed. Time was spent doing a complete capsular and labral release. The glenoid guide was then placed in the inferior aspect of the glenoid. A 3.2 mm Steinmann pin was then placed into the glenoid vault at 10 of inclination. The glenoid baseplate was then reamed. The final size 25 mm small augment baseplate was then impacted in the place. A 6.5 mm central screw was then placed followed by superior and inferior locking screws. A 40 mm eccentric gl enosphere was then impacted into place. Surrounding soft tissues were then injected with 100 cc an orthopedic pain control cocktail. The proximal humerus was then exposed. Sequential broaching of the humerus up to a size 17 broach was done. Off that broach a +3 offset humeral tray was trialed. The shoulder was then reduced, brought through a full range of motion, and felt to be stable. The shoulder was then dislocated and the broach was removed. The final size 17 micro press-fit humeral stem was then impacted into place. A standard humeral bearing was then snapped onto a +3 offset humeral tray. The humeral tray was then impacted onto the humeral stem. The shoulder was once again reduced, brought through a full range of motion, and felt to be stable. The subscapularis was then tenodesed back to the lesser tuberosity with transosseous FiberWire sutures and side to side sutures with the arm in 45 of external rotation. A dilute betadyne lavage was then done for 3 minutes. The joint was then irrigated with normal saline solution. Hemostasis was obtained. The interval was closed with 2-0 Vicryl suture. The skin was then closed with 2-0 Vicryl and jack. A Silverlon dressing was placed and the arm was rested in a regular arm sling. He was then extubated and transferred to a hospital bed. He taken to the postanesthesia care unit in stable condition. He tolerated the procedure well. David Izaguirre PA-C, was present for the entire procedure. He was critical for patient positioning, prepping, draping, retraction exposure, wound closure and application of sterile dressing. I attest to the content of the Intraoperative Record and any orders documented therein. Any exceptions are noted below.
--- NOTE | 2022-01-14 13:32 | XRay Report ---
LEFT SHOULDER 2 VIEWS CLINICAL HISTORY: Postoperative examination. FINDINGS: 2 portable views of the left shoulder are obtained. The skeletal structures are osteopenic. A left shoulder arthroplasty is in near anatomic alignment. No acute fracture is seen. There is mild degenerative change and widening at the acromioclavicular joint. Skin clips, subcutaneous gas, and s oft tissue swelling overlying the left shoulder are expected postoperative changes. The heart is enla rged and there is evidence of previous midline sternotomy. Consolidation as noted at the left lung ba se and a left pleural effusion is suspected. IMPRESSION: 1. Expected post operative findings status post left shoulder arthroplasty. No fracture seen. 2. Left basilar consolidation and suspect a small left pleural effusion. Clinical correlation will be required. Electronically signed by: José Miguel López M.D. 01/14/2022 1:31 PM
--- NOTE | 2022-01-14 13:35 | Anesthesiology Progress Note ---
Date of Service January 14, 2022 Anesthesia Post Procedure Vital Signs Vital Signs: Temp Pulse Pulse Resp BP Pulse Ox O2 Del Method 01/14/22 13:25 61 12 124/75 94 Room Air 01/14/22 13:15 61 14 135/69 94 Oxymask 01/14/22 13:05 65 15 141/70 H 95 Oxymask 01/14/22 12:58 36.3 C L 72 12 139/70 96 Oxymask 01/14/22 09:56 36.6 C 51 L 18 136/76 94 Room Air O2 Flow Rate 01/14/22 13:25 01/14/22 13:15 4 01/14/22 13:05 9 01/14/22 12:58 9 01/14/22 09:56 Pain Intensity Left Shoulder: Pain Intensity: 0 Transfer of Care Handoff Completed per policy Notes Mental Status: alert / awake / arousable and participated in evaluation Patient Amnestic to Procedure: Yes Nausea / Vomiting: adequately controlled Pain: adequately controlled Airway Patency, RR, SpO2: stable & adequate BP & HR: stable & adequate Hydration State: stable & adequate Anesthetic Complications: no major complications apparent and Pt Satisfied with anesthetic care
[2022-01-14] MEDS ORDERED: METOCLOPRAMIDE HCL INJ 5 MG/ML 2 ML VIAL IV PRN (14:03)
[2022-01-14] MEDS ORDERED: PHARMACY GLYCEMIC MGMT CONSULT PRN (14:03)
[2022-01-14] MEDS ORDERED: HYDROmorphone INJ 0.5 MG/0.5 ML SYR IV PRN (14:03)
[2022-01-14] MEDS ORDERED: oxyCODONE HCL IR 5 MG TAB (IMMEDIATE RELEASE) PO PRN (14:03)
[2022-01-14] MEDS ORDERED: NALOXONE HCL 0.4 MG/1 ML VIAL/CARP IV PRN (14:03)
[2022-01-14] MEDS ORDERED: bisacodyL 10 MG SUPP PR PRN (14:03)
[2022-01-14] MEDS ORDERED: MAGNESIUM HYDROXIDE SUSP 30 ML UDC PO PRN (14:03)
[2022-01-14] MEDS: KETOROLAC TROMETHAMINE 15 MG/ML VIAL IV SCH ×2 (14:38→20:50)
[2022-01-14] MEDS: ACETAMINOPHEN 500 MG TAB PO SCH ×2 (14:38→23:37)
[2022-01-14] MEDS: SODIUM CHLORIDE 0.9% 1000ML 1,000 ML IV SCH (14:38)
--- NOTE | 2022-01-14 14:38 | Pharmacy Report ---
Pharmacy Glycemic Short Note 2 - Date of Service January 14, 2022 - Glycemic Short BSG Results (Last 24 hours): 01/14/22 09:48 POC Glucose 110 H OUTPATIENT ANTIDIABETIC REGIMEN: * Metformin 500mg PO daily * HbA1c: pending w/ AM labs (6.3% 04/06/21) ASSESSMENT: * Mr Fox is a 81yo diabetic M who is POD 0 s/p L total shoulder this morning w/ Dr Vargas. * Pt received 8mg PO dexamethasone preoperatively, which may lead to steroid- induced hyperglycemia. * Novolog initiated post-op to provide correctional/prandial coverage. * Will monitor and adjust as indicated. PLAN FOR INPATIENT GLYCEMIC CONTROL: * Hold outpatient oral diabetes medications * Basal insulin * none at this time * Bolus insulin * NovoLog per scale ACHS or Q6hrs while NPO * Goal Range: Low 110 mg/dL - High 140 mg/dL * Correction Factor: 25 mg/dL/unit * Nutritional / Prandial insulin per carb ratio of 1 unit per 10 grams CHO consumed
[2022-01-14] MEDS ORDERED: GLUCOSE 40% GEL 15 GM TUBE PO PRN (14:45)
[2022-01-14] MEDS ORDERED: CARBOHYDRATES FOR HYPOGLYCEMIA PO PRN (14:45)
[2022-01-14] MEDS ORDERED: GLUCAGON FOR INJ 1 MG VIAL IM PRN (14:45)
[2022-01-14] MEDS ORDERED: DEXTROSE 50% 50 ML SYRINGE IV PRN (14:45)
[2022-01-14] MEDS ORDERED: GLUCOSE 10 TAB/TUBE PO PRN (14:45)
[2022-01-14] MEDS: INSULIN ASPART PER UNIT SC SCH ×2 (17:52→21:01)
[2022-01-14] MEDS: ceFAZolin 2000MG 2,000 MG/15 ML SYR IV SCH (19:00)
[2022-01-14] MEDS: IBUPROFEN 200 MG TAB PO SCH (20:51)
[2022-01-14] MEDS: DOCUSATE SODIUM 100 MG CAP PO SCH (20:52)
[2022-01-14] MEDS ORDERED: ROSUVASTATIN CALCIUM 20 MG TAB PO SCH (21:00)
[2022-01-14] MEDS ORDERED: SENNA 8.6 MG TAB PO SCH (21:00)
[2022-01-14] MEDS ORDERED: ZOLPIDEM TARTRATE 5 MG TAB PO SCH (21:00)
[2022-01-14] MEDS ORDERED: MAGNESIUM CHLORIDE W/CALCIUM 64MG DELAYED REL TAB PO SCH (21:00)
[2022-01-14] MEDS ORDERED: FAMOTIDINE 20 MG TAB PO SCH (21:00)
[2022-01-15] MEDS: SODIUM CHLORIDE 0.9% 1000ML 1,000 ML IV SCH (01:21)
[2022-01-15] MEDS: KETOROLAC TROMETHAMINE 15 MG/ML VIAL IV SCH ×2 (03:09→09:06)
[2022-01-15] MEDS: ceFAZolin 2000MG 2,000 MG/15 ML SYR IV SCH (03:09)
[2022-01-15] MEDS: ACETAMINOPHEN 500 MG TAB PO SCH (06:06)
--- NOTE | 2022-01-15 07:29 | Orthopedic Progress Note ---
Date of Service January 15, 2022 Assessment & Plan (1) Status post reverse total replacement of left shoulder: Overall is doing fairly well. He is not having much pain in the left shoulder. He will be seen by physical therapy today for ambulation and range of motion exercises. He can be discharged home later today. He will follow-up with orthopedics in 2 weeks. Alfonso Baker was seen and examined at bedside this morning. Overall is doing very well. Is not having much pain in the left shoulder. He was able to get some sleep last night. He has no complaints.. Review of Systems All systems reviewed & are unremarkable except as noted in HPI & below. Physical Exam On physical examination of the left shoulder, the dressing is clean and dry. He is wearing his sling as instructed. He has motion of his hand and his wrist. He still has some numbness in his thumb.. Results & Data Results & Data Laboratory Results . Diagnostic Findings Postoperative x-rays of the left shoulder show the prosthesis to be in anatomic alignment without any evidence of fracture, desiccation, or loosening. PG Care Time/CCT Total # of Minutes Spent Total Time Spent with Patient: Total time spent is greater than 50% in coordination of care (as documented) at patient's floor/unit and/or counseling patient: Coding Level of Care Code 98190 Post Operative Follow-Up Diagnoses Status post reverse total replacement of left shoulder Z96.612
--- NOTE | 2022-01-15 07:31 | Discharge Summary ---
Date of Service January 15, 2022 Admission HPI (Per Admitting) Ahmet is a pleasant 81-year-old male who has been dealing with chronic left shoulder pain. He underwent a rotator cuff repair by Dr. Piña in [place] about 15 years ago. He was then having pain afterwards. He had a repeat MRI in 2008, which showed a retear of the rotator cuff. He has had shoulder pain over the last 12 to 13 years. It is getting worse. He has trouble reaching away from his body or doing anything up overhead. It hurts him at night. He had another MRI of his shoulder, which shows a large rotator cuff tear with some retraction. It also shows some [id number] glenohumeral arthritis. After failing years of conservative treatment, including multiple injections, he has elected to proceed with a left reverse shoulder arthroplasty. Admission Exam (Per Admitting) On physical examination of the left shoulder, he is about 130 degrees of forward elevation and 130 degrees of abduction. He has 4 out of 5 motor strength with full can testing and external rotation.. Principal Diagnosis Same as "Discharge Diagnosis" noted below under Discharge Instructions. Discharge Exam On physical examination of the left shoulder, the dressing is clean and dry. He is wearing his sling as instructed. He has motion of his hand and his wrist. He still has some numbness in his thumb.. Discharge Data Procedures Performed Operation Date: 01/14/22 11:40 Actual Procedures p Left Reverse Total Shoulder Arthroplasty, Uncemented(Left) - David Vargas DO Ordered Studies 01/14/22 05:00 US - OR guided needle placemen Routine Hospital Course (1) Status post reverse total replacement of left shoulder: On January 14, 2022 Rui arrived at [facility] and underwent a left reverse shoulder replacement without complication. He had a general anesthetic and a left interscalene nerve block. Postoperatively he was placed in a sling a nd transferred to the general orthopedic floors. His hospital course was uneventful. On postop day #1, his vital signs were stable and his pain was well controlled. He was able to participate well with physical therapy doing ambulation and range of motion exercises. He was then discharged home. He will follow-up with orthopedics in 2 weeks. PG Care Time/CCT Total # of Minutes Spent Total Time Spent with Patient: Total time spent is greater than 50% in coordination of care (as documented) at patient's floor/unit and/or counseling patient: Discharge Plan Discharge Items Patient Disposition: Home - Home Health Services Reason For Visit: POST SURGICAL CARE Discharge Diagnosis: Left reverse shoulder replacement Activity: Resume your previous activity Non-emergency contact: Surgeon Call non-emergency contact if: your wound has increased redness and your wound pain has increased Follow-up/Referrals: Mikel Coates MD [Primary Care Provider] - Diet: Regular Addtl Attending Provider Instructions: Activity and Therapy Recommendations: * If you are using [facility] then therapy will be provided at your home until they feel you have accomplished all of your goals. * If you are using [facility] then Physical Therapy will be provided until they feel you are ready to start Outpatient Physical Therapy. * If you are not using home therapy then Outpatient Physical Therapy should start about 3-5 days from your day of surgery. Therapy will last about 8-12 weeks * Wear your sling for 3 weeks, unless otherwise instructed. You may remove your sling to shower and to dress, but otherwise, you should be in your sling at all times, including while sleeping * The shoulder replacement is very stable and you can use your hand while in the sling * You were shown a series of exercises in the hospital. Do these exercises daily including the exercises you were shown in physical therapy. Medications: * Narcotic You will likely be sent home from the hospital with a prescription for the narcotic pain medication that worked best throughout your stay. * Other medications may be prescribed for specific circumstances. If you have any questions, please call the office at . * Resume previous home medications unless otherwise instructed Dressing Care: Leave the Silverlon dressing in place for 7 days. After 7 days you may remove the dressing. If the incision is not draining then you may leave the jack open to air. If there is a little bit of drainage or if the jack are getting stuck on your clothing then cover the incision with a dry dressing. The jack will be removed at your 2 week follow-up appointment. Showering: You may shower with the Silverlon dressing in place. Do not let the shower spray hit the dressing directly. Pat the Silverlon dressing dry. If the dressing becomes wet underneath, then simply remove the dressing. Keep the incision dry until you are 7 days out from the day of surgery. After 7 days you may remove the Silverlon dressing and shower with the jack exposed. Let soapy water run over the jack and pat them dry. Do not scrub or soak the incision. Things To Watch For: * Drainage from the incision site that occurs more than one week after your surgery. * Increased redness at the incision site. * Fever above 102 degrees Fahrenheit. * Unusual chest pain or shortness of breath. * Call [facility] at with any of the above problems Follow-Up Visit: Follow-up with Dr. Vargas's PA (David Izaguirre) 2-3 weeks after your day of surgery. He will remove your jack and answer any questions. If you have any additional questions or concerns, Dr Vargas is usually in the office at the same time and will be available An appointment was probably scheduled when you signed-up for surgery in the office. If you have any questions call More detailed instructions as well as Frequently Asked Questions were provided in a folder by our office when you signed-up for surgery. Please review these instructions when you get home. If you have any further questions or concerns, please feel free to call the office at [phone] Pending Studies at Discharge: No Stand-Alone Forms: My [facility] Medications and DC Order Prescriptions: New oxycodone-acetaminophen 5-325 mg tablet 1 tab PO Q6H PRN (Reason: pain) Qty: 30 0RF Continued omeprazole 20 mg tablet,delayed release (DR/EC) 20 mg PO QAM Qty: 90 3RF metformin 500 mg tablet 500 mg PO QAM Qty: 90 3RF rosuvastatin [Crestor] 40 mg tablet 40 mg PO QPM Qty: 90 3RF valsartan-hydrochlorothiazide [Diovan HCT] 80-12.5 mg tablet 1 tab PO QAM Qty: 90 3RF famotidine [Acid F[employer] (famotidine)] 20 mg tablet 20 mg PO PM Qty: 90 3RF zolpidem [Ambien] 5 mg tablet 5 mg PO HS Qty: 60 0RF ezetimibe [Zetia] 10 mg tablet 10 mg PO QAM Qty: 90 3RF amoxicillin 500 mg tablet 2,000 mg PO ONCE Qty: 4 3RF Rx Instructions: 4 tabs 1 hour prior to procedure loratadine 10 mg capsule 10 mg PO QAM Label Comments: QAM potassium 99 mg Tablet 99 mg PO PM omega [id number]-fish oil [Fish Oil] 1,000 mg (120 mg-180 mg) Capsule 1 cap PO BID Slow-Mag 71.5 mg Tablet,Delayed Release (Dr/Ec) 1 tab PO PM mineral oil Oil See Rx Instructions miscellaneous PM Rx Instructions: 3 tbsp miscellaneous evening PRN; cholecalciferol (vitamin D3) [Vitamin D3] 400 unit Tablet,Chewable 1 unit PO PM tadalafil [Cialis] 5 mg Tablet 5 mg PO QAM ibuprofen 200 mg Capsule 400 mg PO BID aspirin [Royer Low Dose Aspirin] 81 mg tablet,delayed release (DR/EC) 81 mg PO QPM Rx Instructions: Take to prevent blood clots. tamsulosin 0.4 mg capsule 0.4 mg PO QAM acetaminophen 500 mg capsule 1,000 mg PO BID Rx Instructions: Take 3 times per day to lessen pain. Discharge Orders: Discharge Order (Routine); Ordered 01/15/22 Ordered By: David Vargas Admission Data Admit Date/Time: 01/14/22 12:59 Attending Provider: David Vargas Admit Provider: David Vargas Primary Care Provider: Mikel Coates
[2022-01-15] MEDS: IBUPROFEN 200 MG TAB PO SCH (08:53)
[2022-01-15] MEDS: DOCUSATE SODIUM 100 MG CAP PO SCH (08:53)
[2022-01-15 08:58] LABS: Estimated Average Glucose 131 mg/dl; Hemoglobin A1C 6.2 % (4.5-5.6)
[2022-01-15] MEDS ORDERED: EZETIMIBE 10 MG TABLET PO SCH (09:00)
[2022-01-15] MEDS ORDERED: MULTIVITAMIN TAB PO SCH (09:00)
[2022-01-15] MEDS ORDERED: TAMSULOSIN HCL 0.4 MG CAP PO SCH (09:00)
[2022-01-15] MEDS ORDERED: VALSARTAN/HCTZ 80/12.5MG TAB PO SCH (09:00)
[2022-01-15] MEDS ORDERED: LORATADINE 10 MG TAB PO SCH (09:00)
[2022-01-15] MEDS: INSULIN ASPART PER UNIT SC SCH (09:05)
== END 2022-01-15 11:18 | disposition home health service (06) | DRG 483 ==
LOC: ASU 09:03 → 3E 12:59